=== PATIENT | male | born 1985 | race African-American/Black ===

== ENCOUNTER 2020-07-10 11:46 | Outpatient (REF) | payer OTHER, SELFPAY | END 2020-07-10 11:47 | disposition home or self-care (01) | LOC: HO.LAB 11:46 | PROVIDERS: Visit Provider Internal Medicine | DX: Z20.828 Contact with and (suspected) exposure to other viral communicable diseases (principal) | CPT/HCPCS: C9803; U0003 ==

== ENCOUNTER 2020-07-26 10:10 | Outpatient (REF) | payer OTHER, SELFPAY ==
[2020-07-26 13:36] LABS: MANUAL DIFF FLAG NO
[2020-07-26 13:47] LABS: Basophils Percent Auto 0.4 % (0-2); Eosinophils Absolute Auto 0.2 X10*3/uL (0.0-0.4); Eosinophils Percent Auto 3.1 % (0-4); Hematocrit 42.1 % (42-52); Hemoglobin 14.3 g/dl (14.0-18.0); Imm Gran Abs Auto 0.03 X10*3/uL (0.00-0.03); Imm Gran Pct Auto 0.6 % (0.0-0.4); Lymphocytes Absolute Auto 2.1 X10*3/uL (1.2-4.9); Lymphocytes Percent Auto 39.9 % (20-40); Mean Corpuscular Hemoglobin 29.6 pg (27.0-33.0); Mean Corpuscular Volume 87.2 fL (80-98); Mean Platelet Volume 11.1 fL (9.4-12.4); Monocytes Absolute Auto 0.5 X10*3/uL (0.1-1.2); Monocytes Percent Auto 9.1 % (2-11); Neutrophils Absolute Auto 2.4 X10*3/uL (2.0-8.3); Neutrophils Percent Auto 46.9 % (45-73); Platelet Count 263 X10*3/uL (160-400); Red Blood Count 4.83 X10*6/uL (4.60-5.80); Red Cell Distribution Width 12.3 % (11.0-16.0); White Blood Count 5.2 X10*3/uL (4.8-10.8)
[2020-07-26 14:12] LABS: Estimated Average Glucose 315 mg/dL; Hemoglobin A1c % 12.6 %
[2020-07-26 14:24] LABS: Alanine Aminotransferase 46 U/L (0-40); Albumin Level 4.2 g/dL (3.5-5.0); Alkaline Phosphatase 51 U/L (39-117); Anion Gap 15 (12-20); Aspartate Amino Transferase 24 U/L (5-37); Bilirubin Total 1.1 mg/dL (0.0-1.0); Blood Urea Nitrogen 10 mg/dL (9-16); Calcium 9.3 mg/dL (8.4-10.2); Carbon Dioxide 26 mmol/L (22-29); Chloride 103 mmol/L (96-108); Estimated Glomerular Filt Rate > 60; Glucose Fasting 306 mg/dL (60-99); Potassium 4.3 mmol/l (3.3-5.1); Sodium 140 mmol/L (135-145); Total Protein 7.3 g/dL (6.5-8.0)
== END 2020-07-26 10:11 | disposition home or self-care (01) ==
LOC: HO.10HDL 10:10
PROVIDERS: Visit Provider Nurse Practitioner Family
DX: E11.9 Type 2 diabetes mellitus without complications (principal)
CPT/HCPCS: 36415; 80053; 83036; 85025

== ENCOUNTER 2020-07-28 17:21 | Emergency (ER) | payer OTHER, SELFPAY ==
[2020-07-28 18:58] VITALS: BP 143/87; PULSE 76; PULSE 77; RESP 21; TEMP 37.6; O2SAT 95; BMI 51.5
--- NOTE | 2020-07-28 19:11 | XR_ITS ---
EXAMINATION: XR CHEST CLINICAL INFORMATION: SOB. COMPARISON: None TECHNIQUE: Frontal view of the chest was obtained. FINDINGS: No significant abnormality is noted involving the heart, lungs, mediastinum, bony thorax or soft tissues. XR/XR chest 1V IMPRESSION: Unremarkable chest examination.
--- NOTE | 2020-07-28 19:39 | ED_ITS ---
HPI - SOB/Dyspnea General Chief Complaint: Dyspnea Stated Complaint: Covid symptoms Time Seen by Provider: 07/28/20 18:58 Source: patient Mode of arrival: ambulatory Limitations: no limitations History of Present Illness HPI Narrative: 34 y/o male with history of DM, HTN and morbid obesity presents to the ER with intermittent SOB for the last 2-3 weeks. 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 He states he has a at home and they have been keeping it very warm with a humdifier and this is making his breathing more difficult at times. He states he has new onset seasonal allergies last fall. Hx multiple bouts of bronchitis as a kid but no dx of asthma. He denies chest pain, wheezing, fever, chills, body aches, N/V/D, headaches, LE swelling or pain. No family or personal history of blood clots. MD elicited complaint: shortness of breath Pertinent past history: diabetes Onset (ago): week(s) (2-3) Timing: intermittent Severity: moderate Exacerbating factors: exertion, allergies, cold air and warm air Relieving factors: rest Known history of: diabetes Associated symptoms: denies other symptoms Related Data Home oxygen amount: none Previous Rx's Medication Instructions Recorded fluconazole 150 mg tablet 150 mg PO Q3D #2 tab 07/18/20 lisinopril 20 mg tablet 20 mg PO DAILY 30 Days #30 tab 07/18/20 albuterol sulfate 1 inh INHALATION QID PRN #8.5 g 07/28/20 cetirizine [Zyrtec] 10 mg PO DAILY #30 cap 07/28/20 Allergies Allergy/AdvReac Type Severity Reaction Status Date / Time No Known Allergies Allergy Unverified 03/28/20 15:46 Review of Systems Review of Systems: Constitutional: No Fever, No Chills ENT/Mouth: No sore throat Cardiovascular: No Chest Pain, + SOB, No Orthopnea, No Edema Respiratory: No Cough, No Sputum, No Wheezing, No dyspnea Gastrointestinal: No Nausea, No Vomiting, No Diarrhea, No abdominal Pain Musculoskeletal: No joint pain, No Myalgias Neuro: No Weakness, No Numbness, No Dizziness, No Headache Psych: No Anxiety/Panic, No Depression Heme/Lymph: No Bruising, No Lymphadenopathy Endocrine: No Polyuria, No Polydipsia REPLACED BY [facility] Past Medical History Attestation statement: The following information was validated with the patient. Medical History Diabetes Surgical History (Updated 07/18/20 @ 13:16 by Atiya Lomas) H/O eye surgery History of tonsillectomy Family History Family History (Updated 07/18/20 @ 13:17 by Atiya Lomas) Mother No problems noted. Father High blood pressure Social History Social History (Updated 07/18/20 @ 13:18 by Atiya Lomas) Alcohol intake: never Smoking Status: Never smoker Smoked in Last 30 Days: No Use of substances other than those prescribed or required for medical reasons: No Advance Directives: No Advance Directives Information Provided: No Physical Exam Vital Signs: Vital Signs: Last Vital Signs Temp 99.6 F 07/28/20 18:58 Pulse 77 07/28/20 18:58 Resp 21 H 07/28/20 18:58 BP 143/87 H 07/28/20 18:58 Pulse Ox 95 07/28/20 18:58 Body Mass Index 51.5 Appearance: Alert. Oriented X3. No acute distress. Eyes: normal inspection ENT: Pharynx normal. Neck: Normal inspection. Neck supple. CVS: Normal heart rate and rhythm. Pulses normal. No chest wall tenderness Respiratory: No respiratory distress. Distant but clear breath sounds Abdomen: Obese, soft and nontender. +BS x4 Skin: Skin warm and dry. Normal skin color. Normal skin turgor. No rashes. Extremities: No lower extremity edema. Negative Malachi's sign Neuro: Oriented X 3. No motor deficit. No sensory deficit. Course Course Course Narrative: 34 y/o morbidly obese male with hx HTN, DM presenting with intermittent SOB for the last 2-3 weeks. No other symptoms. Recently tested negative for COVID-19 last week. PERC negative. Suspect component of reactive airway disease given enviromental factors contributing. Also concerned his about his weight and restrictive lung disease - at high risk for hypercarbic resp failure, ZHAO, OHS. Discussed importance of weight loss. Will check CXR and Resp panel, low suspicion for PNA or infection. Reevaluation(s) Reevaluation #1: CXR is unremarkable. Will plan to start patient on bronchodilator, antihistamine and have him f/u with his PCP for further workup. Would benefit from PFT's. He is non-toxic with clear lungs and Spo2 95%. He is stable for discharge. Discharge Plan Discharge Clinical Impression: Reactive airway disease without asthma Patient Disposition: Home, Self-Care Instructions: Reactive Airways Disease (ED) Additional Instructions: You were tested for COVID-19, Influenza and RSV today. If any are positive we will call you. Your chest x-ray today was normal. Your oxygen level was normal. Use the prescribed inhaler as needed for shortness of breath. Take the prescribed antihistamine to help with possible allergies, airway sensitivity. Follow up with your Primary Care Provider this week. Weight loss will help improve your breathing. Recommend starting a weight loss regimen - discuss with your doctor. If your shortness of breath worsens or if you develop new or concerning symptoms come back to the ER for further evaluation. Prescriptions: New albuterol sulfate 90 mcg/actuation HFA aerosol inhaler 1 inh inhalation QID PRN (Reason: shortness of breath or wheezing) Qty: 8.5 RF: 0 Zyrtec 10 mg capsule 10 mg PO DAILY Qty: 30 RF: 0 No Action fluconazole 150 mg tablet 150 mg PO Q3D Qty: 2 RF: 0 lisinopril 20 mg tablet 20 mg PO DAILY 30 Days Qty: 30 RF: 0 Stand Alone Forms: Work/School Release
[2020-07-28 20:57] LABS: Influenza A PCR NEGATIVE (Negative); Influenza B PCR NEGATIVE (Negative); Resp Syncy Virus RNA Qual PCR NEGATIVE (Negative); SARS COV2 PCR INHOUSE NEGATIVE (Negative)
== END 2020-07-28 20:53 | disposition home or self-care (01) ==
PROVIDERS: Physician Assistant; Emergency Provider Emergency Medicine
DX: J45.909 Unspecified asthma, uncomplicated (principal); R06.02 Shortness of breath; Z79.899 Other long term (current) drug therapy; Z20.822 Contact with and (suspected) exposure to COVID-19
CPT/HCPCS: 0241U; 36415; 71045; 99283; 99284

== ENCOUNTER 2021-08-01 08:22 | Outpatient (REF) | payer OTHER, SELFPAY ==
[2021-08-01 10:05] LABS: Hematocrit 42.3 % (42.0-52.0); Mean Corpuscular HGB Conc 33.1 g/dl (31.0-36.0); Mean Corpuscular Hemoglobin 28.7 pg (27.0-33.0); Mean Corpuscular Volume 86.7 fL (80.0-98.0); Mean Platelet Volume 10.2 fL (9.4-12.4); Platelet Count 349 X10*3/uL (160-400); Red Blood Count 4.88 X10*6/uL (4.60-5.80); Red Cell Distribution Width 12.2 % (11.0-16.0); White Blood Count 5.9 X10*3/uL (4.8-10.8)
[2021-08-01 10:20] LABS: Alanine Aminotransferase 44 U/L (0-40); Albumin Level 4.2 g/dL (3.5-5.0); Alkaline Phosphatase 56 U/L (39-117); Anion Gap 12 (12-20); Aspartate Amino Transferase 20 U/L (5-37); Bilirubin Total 0.7 mg/dL (0.0-1.0); Blood Urea Nitrogen 12 mg/dL (9-16); Calcium 9.8 mg/dL (8.4-10.2); Carbon Dioxide 26 mmol/L (22-29); Chloride 103 mmol/L (96-108); Cholesterol 255 mg/dL; Estimated Glomerular Filt Rate > 60; Glucose Fasting 270 mg/dL (60-99); HDL Cholesterol 41 mg/dL; LDL Cholesterol Calculated 191 mg/dl; Potassium 4.4 mmol/L (3.3-5.1); Sodium 137 mmol/L (135-145); Total Protein 7.6 g/dL (6.5-8.0); Triglycerides 118 mg/dL
[2021-08-01 10:40] LABS: TSH reflex Free T4 1.11 uIU/mL (0.32-4.0)
== END 2021-08-01 08:23 | disposition home or self-care (01) ==
LOC: HO.10HDL 08:22
PROVIDERS: Visit Provider Physician Assistant
DX: E11.65 Type 2 diabetes mellitus with hyperglycemia (principal); I10 Essential (primary) hypertension
CPT/HCPCS: 36415; 80053; 80061; 84443; 85027

== ENCOUNTER 2021-11-28 08:55 | Outpatient (REF) | payer OTHER, SELFPAY ==
[2021-11-28 09:45] LABS: Hematocrit 42.7 % (42.0-52.0); Hemoglobin 14.5 g/dl (14.0-18.0); Mean Corpuscular Hemoglobin 29.3 pg (27.0-33.0); Mean Corpuscular Volume 86.3 fL (80.0-98.0); Mean Platelet Volume 10.7 fL (9.4-12.4); Platelet Count 303 X10*3/uL (160-400); Red Blood Count 4.95 X10*6/uL (4.60-5.80); Red Cell Distribution Width 12.3 % (11.0-16.0); White Blood Count 5.6 X10*3/uL (4.8-10.8)
[2021-11-28 09:53] LABS: Estimated Average Glucose 301 mg/dL; Hemoglobin A1c % 12.1 %
[2021-11-28 10:01] LABS: Microalbum/Creatinine Ratio Ur 15.8 ug/mg cr
[2021-11-28 10:09] LABS: Alanine Aminotransferase 36 U/L (0-40); Albumin Level 4.3 g/dL (3.5-5.0); Alkaline Phosphatase 60 U/L (39-117); Anion Gap 12 (12-20); Aspartate Amino Transferase 17 U/L (5-37); Bilirubin Total 0.8 mg/dL (0.0-1.0); Blood Urea Nitrogen 9 mg/dL (9-16); Calcium 9.8 mg/dL (8.4-10.2); Carbon Dioxide 26 mmol/L (22-29); Chloride 104 mmol/L (96-108); Cholesterol 198 mg/dL; Estimated Glomerular Filt Rate > 60; Glucose Fasting 316 mg/dL (60-99); HDL Cholesterol 42 mg/dL; LDL Cholesterol Calculated 138 mg/dl; Potassium 4.2 mmol/L (3.3-5.1); Sodium 138 mmol/L (135-145); Total Protein 7.6 g/dL (6.5-8.0); Triglycerides 90 mg/dL
== END 2021-11-28 08:56 | disposition home or self-care (01) ==
LOC: HO.LAB 08:55
PROVIDERS: PCP Physician Assistant; Visit Provider Physician Assistant
DX: E11.65 Type 2 diabetes mellitus with hyperglycemia (principal); I10 Essential (primary) hypertension; E78.00 Pure hypercholesterolemia, unspecified
CPT/HCPCS: 36415; 80053; 80061; 82043; 83036; 85027

== ENCOUNTER 2021-12-25 09:22 | Emergency (ER) | payer OTHER, SELFPAY ==
[2021-12-25 09:24] VITALS: BP 180/112; PULSE 96; RESP 18; TEMP 36.8; O2SAT 99; BMI 44.6
[2021-12-25 09:29] VITALS: BP 145/96
[2021-12-25 10:18] VITALS: BP 169/97; PULSE 103; RESP 16; TEMP 36.4; O2SAT 95
--- NOTE | 2021-12-25 11:29 | PC.NURSE ---
Visual acuity test completed, no change to affected eye.
--- NOTE | 2021-12-25 11:44 | ED_ITS ---
HPI - Eye Problem General Chief complaint: General Medical Stated complaint: seeing spots in eye Time Seen by Provider: 12/25/21 10:04 Source: patient Mode of arrival: ambulatory Limitations: no limitations History of Present Illness HPI Narrative: Patient presents emergency department for evaluation of a black spot to his left eye. He states that for the past 3 days has been noticing intermittent black spot in his 12:00 o'clock vision. Otherwise denies any visual changes, or decreased vision. He states that he has had a similar episode like this having occurred 2 months ago, but the symptoms only lasted for 2 days and then self- resolved. Denies headache, dizziness, lightheadedness, neck pain, neck stiffness, ear pain, tinnitus, chest pain, palpitations, shortness of breath and her breathing, numbness or tingling of extremities, weakness. MD chief complaint: vision change ( scotoma) Onset (ago): day(s) Onset description: other Duration: intermittent Location: left eye Mechanism: none Associated symptoms: none Treatments Prior to Arrival: none Related Data Previous Rx's Medication Instructions Recorded albuterol sulfate 90 mcg/actuation 1 inh inhalation QID PRN shortness 07/28/20 aerosol inhaler of breath or wheezing #8.5 grams cetirizine 10 mg capsule (Zyrtec) 10 mg PO DAILY #30 caps 07/28/20 insulin glargine 100 unit/mL (3 15 unit (0.15 mL) subcut QAM 30 09/23/21 mL) subcutaneous pen (Lan days #15 mL Solostar U-100 Insulin) pen needle, diabetic 32 gauge x #50 ea 09/23/21 (BD Ultra-Fine Jennifer Pen Needle) amlodipine 5 mg tablet 5 mg PO DAILY 30 days #30 tabs 11/26/21 atorvastatin 20 mg tablet 20 mg PO DAILY 30 days #30 tabs 11/26/21 lisinopril 20 mg tablet 20 mg PO DAILY 90 days #90 tabs 11/26/21 dulaglutide 3 mg/0.5 mL 3 mg (0.5 mL) subcut QWEEK 4 weeks 12/02/21 subcutaneous pen injector #2 mL (Trulicity) Allergies Allergy/AdvReac Type Severity Reaction Status Date / Time No Known Allergies Allergy Verified 11/26/21 10:27 Review of Systems Review of Systems: Constitutional: No fever, chills, weakness or fatigue. Skin: No rash or itching. Cardiovascular: No chest pain, chest pressure or chest discomfort. No palpitations Respiratory: No shortness of breath, cough Gastrointestinal: No, nausea, vomiting or diarrhea. Musculoskeletal: No muscle pain, back pain, joint pain or stiffness. Neurologic: positive scotoma. no headache Psychiatric: No depression or anxiety. Yes all other systems are reviewed and are negative PMFSH Past Medical History Attestation statement: The following information was validated with the patient. Source: old records reviewed Surgical History H/O eye surgery History of tonsillectomy Family History Family History Mother No problems noted. Father High blood pressure Social History Social History Housing: House Alcohol intake: current Alcohol intake frequency: holidays/special occasions only Patient Tobacco Use Status: Never used Tobacco e-Cigarette/Vaping Use: Never Used Use of substances other than those prescribed or required for medical reasons: No Advance Directives: No Advance Directives Information Provided: Yes Current occupational status: employed Cognitive needs: No Hearing needs: No Vision needs: No Physical Exam Vital Signs: Vital Signs: Last Vital Signs Temp 97.6 F 12/25/21 10:18 Pulse 97 12/25/21 12:19 Resp 16 12/25/21 12:19 BP 152/99 H 12/25/21 12:19 Pulse Ox 99 12/25/21 12:19 O2 Del Method 12/25/21 12:19 BMI result Body Mass Index 44.6 Vital signs have been reviewed as normal and appeared to be correct. hypertensive? Heart rate normal.? Respiration rate normal. Temperature normal.? Oxygen saturation normal. Appearance: Alert.?Oriented to person, place and time. No acute distress.?Normal affect. Eyes: Pupils equal, round and reactive to light.? EOMI. No nystagmus. Positive red reflex. Unaffected visual acuity. Normal intra-ocular pressure bilaterally. ENT: Pharynx normal.?? Neck: Normal inspection.? Neck supple.?? CVS: Heart sounds normal. Normal heart rate and rhythm.? Pulses normal.?? Respiratory: No respiratory distress.? Lung sounds clear to auscultation bilaterally?? Abdomen: Soft and non-tender. Skin: Skin warm and dry.? Normal skin color.? Extremities: No lower extremity edema.? Neuro: Moves all extremities spontaneously. Sensation intact bilaterally. CN II- XII intact. No focal neuro deficits. Ambulates with normal steady gait. Course Course Course Narrative: Patient is a 36-year-old male with a past medical history of obesity, hyperlipidemia, hypertension, and diabetes. Presenting to the emergency department for evaluation of intermittent scotoma. patient does report that he has not been to see an eye doctor in a couple of years. He is supposed to wear corrective lenses, however he is not., visual acuity bilaterally 20 40, left 20 40, right 20 50. Intra-ocular pressure with Tonopen; right 16, left 18. not consistent with glaucoma, retinal detachment, retinal artery occlusion. Refer history of diabetes and hypertension, may be consistent with retinopathy or macular degeneration. No focal neurological findings to suggest CVA. No symptoms consistent with infectious process of the eye. Discussed importance of routine ophthalmology evaluation given his comorbidities. At this time Rocky patient is stable for discharge home, will provide contact information for Dr. Sauceda, advised outpatient follow-up with his primary care provider within 1 week, discussed with him that he should return back to the emergency department, all questions were answered and he was discharged home in a stable condition. MDM - Eye Problem Medical Records Attestation: I reviewed the patient's medical records. Lab Data Attestation: I reviewed the patient's lab results. Discharge Plan Discharge Clinical Impression: Scotoma involving central area in visual field of left eye Patient Disposition: Home, Self-Care Prescriptions: No Action Lantus Solostar U-100 Insulin 100 unit/mL (3 mL) insulin pen 15 unit subcut QAM 30 Days Qty: 15 1RF Hold Instructions: Doctor's Order (DME) pen needle, diabetic [BD Ultra-Fine Jennifer Pen Needle] 32 gauge x 5/32 needle See Rx Instructions .ROUTE .MEDSUPPLY Qty: 50 1RF Rx Instructions: As directed Trulicity 3 mg/0.5 mL pen injector 3 mg subcut QWEEK 28 Days Qty: 2 2RF albuterol sulfate 90 mcg/actuation HFA aerosol inhaler 1 inh inhalation QID PRN (Reason: shortness of breath or wheezing) Qty: 8.5 0RF Zyrtec 10 mg capsule 10 mg PO DAILY Qty: 30 0RF amlodipine 5 mg tablet 5 mg PO DAILY 30 Days Qty: 30 3RF atorvastatin 20 mg tablet 20 mg PO DAILY 30 Days Qty: 30 3RF lisinopril 20 mg tablet 20 mg PO DAILY 90 Days Qty: 90 1RF Referrals: Jamie Sauceda [Physician] - 1 week Stand Alone Forms: Work/School Release Interventions: ED Discharge Assessment Last Done: 12/25/21 12:27 Discharge Date/Time: 12/25/21 12:28
[2021-12-25 12:19] VITALS: BP 152/99; PULSE 97; RESP 16; O2SAT 99
== END 2021-12-25 12:28 | disposition home or self-care (01) ==
PROVIDERS: Emergency Provider Student in an Organized Health Care Education/Training Program; PCP Physician Assistant
DX: H53.412 Scotoma involving central area, left eye (principal); I10 Essential (primary) hypertension; E11.9 Type 2 diabetes mellitus without complications; E78.5 Hyperlipidemia, unspecified; Z79.4 Long term (current) use of insulin
CPT/HCPCS: 99282; 99284

== ENCOUNTER 2022-05-06 15:42 | Outpatient (REF) | payer OTHER, SELFPAY ==
[2022-05-06 17:01] LABS: Alanine Aminotransferase 31 U/L (0-40); Albumin Level 4.4 g/dL (3.5-5.0); Alkaline Phosphatase 60 U/L (39-117); Anion Gap 16 (12-20); Aspartate Amino Transferase 18 U/L (5-37); Blood Urea Nitrogen 12 mg/dL (9-16); Calcium 10.1 mg/dL (8.4-10.2); Carbon Dioxide 26 mmol/L (22-29); Chloride 102 mmol/L (96-108); Cholesterol 195 mg/dL; Estimated Glomerular Filt Rate > 60; Glucose Random 216 mg/dL (60-115); HDL Cholesterol 43 mg/dL; LDL Cholesterol Calculated 129 mg/dl; Potassium 4.2 mmol/L (3.3-5.1); Sodium 140 mmol/L (135-145); Total Protein 7.7 g/dL (6.5-8.0); Triglycerides 115 mg/dL
[2022-05-06 17:22] LABS: TSH reflex Free T4 0.82 uIU/mL (0.32-4.0)
[2022-05-07 07:55] LABS: HBS Num1 7.34 mIU/mL (0-7.99); HBc Num1 0.06 S/CO (0.00-0.79); Hepatitis B Core Antibody Nonreactive (Nonreactive); Hepatitis B Surface Antigen Negative (Negative); ~HepC Num1 0.11 S/CO (0.00-0.79); ~Hepatitis B Surface Antibody NONREACTIVE (Nonreactive); ~Hepatitis C Antibody Nonreactive (Nonreactive)
== END 2022-05-06 15:43 | disposition home or self-care (01) ==
LOC: HO.LAB 15:42
PROVIDERS: PCP Physician Assistant; Visit Provider Nurse Practitioner Family
DX: I10 Essential (primary) hypertension (principal); E78.00 Pure hypercholesterolemia, unspecified
CPT/HCPCS: 36415; 80053; 80061; 84443; 86704; 86706; 86803; 87340

== ENCOUNTER 2023-01-25 08:54 | Outpatient (AMB) | payer OTHER, SELFPAY ==
[2023-01-25 08:59] VITALS: BP 174/96; PULSE 87; BMI 49.2
--- NOTE | 2023-01-25 08:59 | MHC.OFFVIS ---
Intake Vital Signs 01/25/23 08:59 Height 5 ft 11 in Weight 353 lb BMI 49.2 BP 174/96 H Blood Pressure Location Rt radial Position Sitting Pulse 87 Intake Visit Reasons: Abd hernia Intake Note: Patient referred for abd hernia. Noticed hernia after lifting toilet 13 yrs ago. Patient states it has been enlarging over the years. Pain when eating fatty foods. Food Order Expediter Required: No Accompanied by: girlfriend, daughter Allergies No Known Allergies Allergy (Verified 01/25/23 09:02) Medication List - Last Reconciled 01/25/23 by Emmett Magallon MD albuterol sulfate 90 mcg/actuation 1 inh inhalation QID PRN amlodipine 5 mg PO DAILY 30 days atorvastatin 20 mg PO DAILY 30 days blood pressure kit-extra large As directed cetirizine (Zyrtec) 10 mg PO DAILY dulaglutide (Trulicity) 1.5 mg (0.5 mL) subcut QWEEK 30 days flash glucose scanning reader (FreeStyle Dora 2 Wyola) As directed flash glucose sensor (FreeStyle Dora 2 Sensor kit) As directed every 2 weeks lisinopril 30 mg PO DAILY pen needle, diabetic (BD Ultra-Fine Jennifer Pen Needle) As directed HPI HPI Comments History of Present Illness Details Patient presents with his significant other and daughter for evaluation of a supraumbilical ventral hernia. He has had this 13 years time. It is former employment, he was doing significant heavy lifting and straining and felt this was the cause. It is increasing in size, becoming more symptomatic. He wished to have repaired. Otherwise, patient is tolerating his diet, having normal bowel habits. Chart was reviewed and patient evaluated REPLACED BY [facility] Medical History Diabetes High cholesterol Hypertension Surgical History H/O eye surgery History of tonsillectomy Family History Mother No problems noted. Father High blood pressure Social History Housing: House Alcohol intake: current Alcohol intake frequency: holidays/special occasions only Patient Tobacco Use Status: Never used Tobacco e-Cigarette/Vaping Use: Never Used Current occupational status: employed Cognitive needs: No Hearing needs: No Vision needs: No Physical Exam Vital Signs: Last Vital Signs Pulse 87 01/25/23 08:59 BP 174/96 H 01/25/23 08:59 BMI result Body Mass Index 49.2 Const Other: Corpulent male. Chest Other: Chest breath sounds bilaterally, HS 1 in 2 GI Other: Patient was examined both supine and standing with Valsalva. Veto abdomen. Bilateral groin exam negative. Genitalia within normal limits. Very large approximately 3-4 cm supraumbilical incarcerated ventral hernia. Assessment & Plan Assessment & Plan (1) Abdominal hernia: Code(s): K46.9 - Unspecified abdominal hernia without obstruction or gangrene Qualifiers: Hernia type: incisional Obstruction and gangrene presence: with obstruction but without gangrene Qualified Code(s): K43.0 - Incisional hernia with obstruction, without gangrene Plan Risks, benefits, alternatives of open repair of supra umbilical ventral hernia with mesh were reviewed with the patient and included but not limited to bleeding, infection, recurrence, numbness, pain, scarring, bowel injury, seroma formation,, and patient wishes to proceed. All questions were answered. Arrangements will be made for this. Coding Level of Care Code New Pt Level 4 (08006) Diagnoses Abdominal hernia K43.0 Hernia type: incisional Obstruction and gangrene presence: with obstruction but without gangrene
== END 2023-01-25 09:14 | disposition home or self-care (01) ==
PROVIDERS: PCP Physician Assistant; Referring Provider Nurse Practitioner Family; Visit Provider Surgery
DX: E78.00 Pure hypercholesterolemia, unspecified (principal); K43.0 Incisional hernia with obstruction, without gangrene
CPT/HCPCS: 99204

== ENCOUNTER → 2023-01-25 08:54 | Outpatient (BNVA) | payer OTHER, SELFPAY | PROVIDERS: PCP Physician Assistant; Referring Provider Nurse Practitioner Family; Visit Provider Surgery | DX: K43.0 Incisional hernia with obstruction, without gangrene (principal) | CPT/HCPCS: 99202 ==

== ENCOUNTER 2023-02-18 05:52 | Day surgery (SDC) | payer OTHER, SELFPAY ==
[2023-02-15 15:06] VITALS: BMI 49.2
[2023-02-16 10:06] VITALS: BMI 49.2
--- NOTE | 2023-02-16 11:56 | HO.ANESPROP2 ---
HPI - Anesthesia Eval Consult details Narrative: 37yo M for incarcerated supra-umbilical ventral hernia w/mesh PMFSH Active Problems Active Problems: All Active Problems (Updated 02/16/23 @ 10:10 by Cynthia Dye RN) Abdominal hernia (Acute) Obese (Acute) Scotoma involving central area in visual field of left eye (Acute) High cholesterol (Acute) Hypertension (Acute) Diabetes (Acute) Past Medical History Medical History (Updated 02/16/23 @ 10:10 by Cynthia Dye RN) Diabetes High cholesterol History of snoring Hypertension Family History Family History Mother No problems noted. Father High blood pressure Surgical History Surgical History (Updated 02/16/23 @ 10:00 by Cynthia Dye RN) H/O eye surgery History of tonsillectomy Social History Social History (Updated 02/16/23 @ 10:06 by Cynthia yDe RN) Household Members: Significant Other and Children Housing: House Are you a primary floor care specialist to a significant other at home: Yes (daughter) Do you presently have visiting nurse or other home services: No Alcohol intake: current Alcohol intake frequency: holidays/special occasions only Patient Tobacco Use Status: Never used Tobacco e-Cigarette/Vaping Use: Never Used Use of substances other than those prescribed or required for medical reasons: No Have you been hit, kicked, punched, or otherwise hurt by someone within the past year? If so, by whom?: No Are you DNR?: No Advance Directives: No Advance Directives Information Provided: Yes Advance Directives on File: No Recently lost weight without trying: No Nutrition Risks: No Nutritional Risk Poor oral hygiene: No Current occupational status: employed Cognitive needs: No Hearing needs: No Vision needs: No Meds Allergies Allergy/AdvReac Type Severity Reaction Status Date / Time shellfish derived Allergy Hives, Verified 02/16/23 10:00 itching Home Medications Medication Instructions Recorded Confirmed Last Taken Type cetirizine 10 mg capsule (Zyrtec) 10 mg PO DAILY PRN Allergy Symptoms 02/16/23 02/16/23 Unknown History Exam Exam Date and Time: February 16, 2023 1156 Height,Weight and Vital Signs: Height 5 ft 11 in Weight 160.118 kg Assessment and Plan Assessment Anesthesia Assessment: Chart Reviewed
--- NOTE | 2023-02-17 10:21 | MHC.SHP ---
Pre-Procedural Eval Section A Date of Service: 02/17/23 The patient is an INPATIENT: No Changes since office visit: No Cold of Flu in the past 2 weeks, No New Medical Problems, No Changes in Medication and No Patient answered all questions The History & Physical has been completed within 30 days and I have reviewed it.: Yes Section B Chief Complaint: Incisional hernia with obstruction, without gangre Allergies: Allergies Allergy/AdvReac Type Severity Reaction Status Date / Time shellfish derived Allergy Hives, Verified 02/16/23 10:00 itching Plan I have reviewed the history and physical and performed a pertinent physical examination on my patient. No changes have occurred unless specified. Time Spent With Patient Time: Total time managing care of this patient today ____ minutes.
[2023-02-18] VITALS (10 sets, daily range): BP systolic 136–164; BP diastolic 86–101; PULSE 97–110; RESP 16–17; TEMP 36.5–36.8; O2SAT 90–95
--- NOTE | 2023-02-18 | ECG_ITS ---
Test Reason : preop htn dm Blood Pressure : / mmHG Vent. Rate : 099 BPM Atrial Rate : 099 BPM P-R Int : 164 ms QRS Dur : 080 ms QT Int : 334 ms P-R-T Axes : 053 015 -29 degrees QTc Int : 428 ms Normal sinus rhythm Nonspecific T wave abnormality Abnormal ECG When compared with ECG of 31-AUG-2011 11:38, Nonspecific T wave abnormality has replaced inverted T waves in Inferior leads Referred By: Janie Wu Electronically Signed By:Chuck Bardales
[2023-02-18 06:34] LABS: Glucose, Whole Blood 134 mg/dL (60-115)
[2023-02-18] MEDS: Lactated Ringers 1,000 ML 100 ML IVCONT (06:40)
[2023-02-18 06:48] LABS: Mean Corpuscular HGB Conc 34.1 g/dl (31.0-36.0); Mean Corpuscular Hemoglobin 29.6 pg (27.0-33.0); Mean Corpuscular Volume 86.7 fL (80.0-98.0); Mean Platelet Volume 9.9 fL (9.4-12.4); Platelet Count 299 X10*3/uL (160-400); Red Blood Count 4.73 X10*6/uL (4.60-5.80); Red Cell Distribution Width 12.5 % (11.0-16.0); White Blood Count 5.2 X10*3/uL (4.8-10.8)
[2023-02-18 07:04] LABS: Anion Gap 12 (12-20); Blood Urea Nitrogen 14 mg/dL (9-16); Carbon Dioxide 27 mmol/L (22-29); Chloride 105 mmol/L (96-108); Creatinine Clr Calc Pharmacy 178.9; Estimated Glomerular Filt Rate > 60; Glucose Fasting 137 mg/dL (60-99); Potassium 3.4 mmol/L (3.3-5.1); Sodium 141 mmol/L (135-145)
--- NOTE | 2023-02-18 07:15 | HO.ANESPROP2 ---
[facility] Active Problems Active Problems: All Active Problems (Updated 02/16/23 @ 10:10 by Cynthia Dye RN) Abdominal hernia (Acute) Obese (Acute) Scotoma involving central area in visual field of left eye (Acute) High cholesterol (Acute) Hypertension (Acute) Diabetes (Acute) Past Medical History Medical History (Updated 02/16/23 @ 10:10 by Cynthia Dye RN) Diabetes High cholesterol History of snoring Hypertension Family History Family History Mother No problems noted. Father High blood pressure Family history of problems with anesthesia: No Surgical History Surgical History (Updated 02/16/23 @ 10:00 by Cynthia Dye RN) H/O eye surgery History of tonsillectomy History of Problems with Anesthesia: No Social History Social History (Updated 02/16/23 @ 10:06 by Cynthia Dye RN) Household Members: Significant Other and Children Housing: House Are you a primary hospice care transitions coordinator to a significant other at home: Yes (daughter) Do you presently have visiting nurse or other home services: No Alcohol intake: current Alcohol intake frequency: holidays/special occasions only Patient Tobacco Use Status: Never used Tobacco e-Cigarette/Vaping Use: Never Used Use of substances other than those prescribed or required for medical reasons: No Have you been hit, kicked, punched, or otherwise hurt by someone within the past year? If so, by whom?: No Are you DNR?: No Advance Directives: No Advance Directives Information Provided: Yes Advance Directives on File: No Recently lost weight without trying: No Nutrition Risks: No Nutritional Risk Poor oral hygiene: No Current occupational status: employed Cognitive needs: No Hearing needs: No Vision needs: No Meds Allergies Allergy/AdvReac Type Severity Reaction Status Date / Time shellfish derived Allergy Hives, Verified 02/16/23 10:00 itching Active Medications: Current Medications Lactated Ringer's (Lr) 1,000 mls @ 100 mls/hr IVCONT .Q10H THIAGO Last Admin: 02/18/23 06:40 Dose: 100 mls/hr Home Medications Medication Instructions Recorded Confirmed Last Taken Type cetirizine 10 mg capsule (Zyrtec) 10 mg PO DAILY PRN Allergy Symptoms 02/16/23 02/16/23 Unknown History Exam Exam Date and Time: February 18, 2023 0715 Height,Weight and Vital Signs: Height 5 ft 11 in Weight 160.118 kg Last Vital Signs Temp 98.2 F 02/18/23 06:25 Pulse 97 02/18/23 06:25 Resp 16 02/18/23 06:25 BP 152/93 H 02/18/23 06:25 Pulse Ox 95 02/18/23 06:25 O2 Del Method Room Air 02/18/23 06:25 Pertinent Lab Results Pertinent Lab Results: Laboratory Tests 02/18/23 02/18/23 02/18/23 06:28 06:28 06:31 WBC 5.2 RBC 4.73 Hgb 14.0 Hct 41.0 L MCV 86.7 MCH 29.6 MCHC 34.1 RDW 12.5 Plt Count 299 MPV 9.9 Absolute Nucleated RBC 0.000 Nucleated RBC % (auto) 0.0 Sodium 141 Potassium 3.4 Chloride 105 Carbon Dioxide 27 Anion Gap 12 BUN 14 Creatinine 0.89 Estim Creat Clear Calc 178.9 Estimated GFR > 60 POC Glucose 134 H Fasting Glucose 137 H Calcium 10.0 Airway Mallampati Class: III TM Dist: >3cm Neck ROM: Full Assessment and Plan Assessment Anesthesia Assessment: Anesthesia Plan Discussed and Chart Reviewed Final Anesthetic Review Family History of Problems with Anesthesia: No History of Problems with Anesthesia: No NPO: Yes ASA Class: III Final Preanesthetic Review: No Changes in Pt Med Stat, Meds/Allgs Chart Reviewed, Consent Obtained/Reviewed and Anes Risks/Benef Reviewed Patient Risk: Intermediate Procedure Risk: Low Anesthetic Plan Anesthetic Plan: GA Disposition: Standard PACU
--- NOTE | 2023-02-18 08:32 | P.OP_ITS ---
Operative Note Operative Note Date of Service: 02/18/23 Narrative: Preoperative diagnosis: [] Large supraumbilical incarcerated ventral hernia Postop diagnosis: [] Same Procedure [] open repair with mesh incarcerated supraumbilical ventral hernia Surgeon: [] Naun Cigar Head Stringer: [] SOFYA Taylor Type of Anesthesia: [] General Indication for surgery: [] Approximately maximum diameter 5 cm incarcerated supraumbilical ventral hernia with omental contents. Findings: [] Patient was brought to the operating room, placed on operative table in supine position, after adequate level of general anesthesia was induced, the patient's abdomen which was very corpulent was prepped and draped in usual sterile fashion. Using a small midline incision over the hernia in question, this carried down through skin, subcutaneous tissue, where the large hernia sac was circumferentially dissected out using blunt and sharp dissection down to the fascia. Sac was opened where incarcerated omental contents were reduced. Sac was amputated using Bovie. Circumferential clearance of the fascia was accomplished uneventfully. A large Bard mesh was placed in this defect, and the superficial layer of the mesh was circumferentially sutured to the surrounding fascia using interrupted 0 Ethibond suture. At completion the procedure, mesh was in good position with no gaps or tension. Wound was irrigated, secured hemostasis, and closed in the following manner; subcutaneous tissue was reapproximated using interrupted 3-0 Vicryl sutures. Interrupted inverted deep dermal 3-0 Vicryl sutures followed by running subcuticular 4-0 Vicryl sutures were placed. Steri-Strips and sterile dressings were applied. Wound was infiltrated with 1 % lidocaine/0.5% Marcaine. Sponge, needle, and instrument counts reported to be correct. Patient tolerated the procedure well and emerged anesthesia in stable condition. EBL minimal
[2023-02-18] MEDS: oxyCODONE HCl Immed Release 5 MG TABLET 10 MG PO (09:02)
== END 2023-02-18 10:45 | disposition home or self-care (01) ==
PROVIDERS: Nurse Practitioner; PCP Physician Assistant; Visit Provider Surgery
PROC: (CPT 49594; principal; 2023-02-18 07:30)
DX: K43.6 Other and unspecified ventral hernia with obstruction, without gangrene (principal); I10 Essential (primary) hypertension; E78.00 Pure hypercholesterolemia, unspecified; E11.9 Type 2 diabetes mellitus without complications; Z79.85 Long-term (current) use of injectable non-insulin antidiabetic drugs; Z79.899 Other long term (current) drug therapy
CPT/HCPCS: 49594; 36415; 80048; 82947; 85027; 88302; 93005; C1781; J0330; J0690; J1100; J2250; J2405; J2795; J3010

== ENCOUNTER → 2023-02-18 05:52 | Outpatient (BNV) | payer OTHER, SELFPAY | PROVIDERS: PCP Physician Assistant; Visit Provider Surgery | DX: K43.6 Other and unspecified ventral hernia with obstruction, without gangrene (principal) | CPT/HCPCS: 49594 ==

== ENCOUNTER → 2023-02-18 07:00 | Outpatient (BNV) | payer OTHER, SELFPAY | PROVIDERS: PCP Physician Assistant; Visit Provider Internal Medicine Cardiovascular Disease | DX: R94.31 Abnormal electrocardiogram [ECG] [EKG] (principal) | CPT/HCPCS: 93010 ==

== ENCOUNTER 2023-02-25 10:38 | Outpatient (AMB) | payer OTHER, SELFPAY ==
--- NOTE | 2023-02-25 10:40 | MHC.OFFVIS ---
Intake Vital Signs 02/25/23 10:44 Weight 357 lb BP 169/104 H Blood Pressure Location Rt radial Position Sitting Pulse 95 Intake Visit Reasons: S/P supra-umbilical ventral hernia w/mesh Intake Note: Patient here s/o umbilical ventral hernia rapair. Reports incisions healing well. Denies bleeding, pain, itch. Taking rx pain meds as needed. 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 He has minimal incisional discomfort. He has time diet. Having normal bowel habits. He is increasing his activity level. Patient wishes to return to work. [facility] Medical History Diabetes High cholesterol History of snoring Hypertension Ventral hernia (02/18/23) Surgical History H/O eye surgery History of tonsillectomy Family History Mother No problems noted. Father High blood pressure Social History Household Members: Significant Other and Children Housing: House Are you a primary critical care registered nurse to a significant other at home: Yes (daughter) Do you presently have visiting nurse or other home services: No Alcohol intake: current Alcohol intake frequency: holidays/special occasions only Patient Tobacco Use Status: Never used Tobacco e-Cigarette/Vaping Use: Never Used Current occupational status: employed Cognitive needs: No Hearing needs: No Vision needs: No Physical Exam Vital Signs: Last Vital Signs Pulse 95 02/25/23 10:44 BP 169/104 H 02/25/23 10:44 GI Other: Abdomen soft, corpulent. Wound clean dry and intact. Assessment & Plan Assessment & Plan (1) Abdominal hernia: Code(s): K46.9 - Unspecified abdominal hernia without obstruction or gangrene Qualifiers: Hernia type: incisional Obstruction and gangrene presence: with obstruction but without gangrene Qualified Code(s): K43.0 - Incisional hernia with obstruction, without gangrene Plan Current plan is to allow patient to return to work with 4 weeks light duty. He will follow-up p.r.n.. He has been given local instructions. Medications: Discontinued cetirizine 10 mg PO DAILY 30 caps 0RF Coding Level of Care Code Global (89138) Diagnoses Abdominal hernia K43.0 Hernia type: incisional Obstruction and gangrene presence: with obstruction but without gangrene
[2023-02-25 10:44] VITALS: BP 169/104; PULSE 95
== END 2023-02-25 10:53 | disposition home or self-care (01) ==
PROVIDERS: PCP Physician Assistant; Visit Provider Surgery
DX: K43.0 Incisional hernia with obstruction, without gangrene (principal)
CPT/HCPCS: 99213

== ENCOUNTER → 2023-02-25 10:38 | Outpatient (BNVA) | payer OTHER, SELFPAY | PROVIDERS: PCP Physician Assistant; Visit Provider Surgery | DX: K43.0 Incisional hernia with obstruction, without gangrene (principal) | CPT/HCPCS: 99212 ==

== ENCOUNTER 2023-06-12 19:47 | Emergency (ER) | payer OTHER, SELFPAY ==
--- NOTE | ~2023-06-12 | XR_ITS ---
EXAMINATION: XR CHEST CLINICAL INFORMATION: Sternal abscess. COMPARISON: Chest radiograph 07/28/2020. TECHNIQUE: 2 views of the chest were obtained. FINDINGS: Stable appearance of the cardiomediastinal silhouette. No focal airspace opacities, pleural effusions or pneumothorax. No acute osseous findings. Visualized upper abdomen is within normal limits. XR/XR chest 2V IMPRESSION: No acute cardiopulmonary findings. Evaluation of the sternum and surrounding soft tissues is very limited by radiograph in addition to limited as well in this particular case secondary to patient body habitus. Further evaluation with targeted ultrasound or CT with IV contrast could be obtained as clinically warranted.
[2023-06-12 19:58] VITALS: BP 179/117; PULSE 113; RESP 18; TEMP 36.2; O2SAT 97; BMI 50.2
--- NOTE | 2023-06-12 20:32 | MHC.EDTECH ---
Patient blood drawn and sent to lab .
[2023-06-12 20:35] LABS: MANUAL DIFF FLAG NO
[2023-06-12 20:39] LABS: Basophils Percent Auto 0.3 % (0-2); Eosinophils Absolute Auto 0.1 X10*3/uL (0.0-0.4); Eosinophils Percent Auto 1.9 % (0-4); Hematocrit 38.6 % (42.0-52.0); Hemoglobin 13.2 g/dl (14.0-18.0); Imm Gran Abs Auto 0.03 X10*3/uL (0.00-0.03); Imm Gran Pct Auto 0.4 % (0.0-0.4); Lymphocytes Absolute Auto 2.7 X10*3/uL (1.2-4.9); Lymphocytes Percent Auto 35.6 % (20-40); Mean Corpuscular HGB Conc 34.2 g/dl (31.0-36.0); Mean Corpuscular Hemoglobin 28.9 pg (27.0-33.0); Mean Corpuscular Volume 84.6 fL (80.0-98.0); Mean Platelet Volume 10.2 fL (9.4-12.4); Monocytes Absolute Auto 0.6 X10*3/uL (0.1-1.2); Monocytes Percent Auto 7.5 % (2-11); Neutrophils Absolute Auto 4.1 x10*3/uL (2.0-8.3); Neutrophils Percent Auto 54.3 % (45-73); Platelet Count 291 X10*3/uL (160-400); Red Blood Count 4.56 X10*6/uL (4.60-5.80); Red Cell Distribution Width 12.3 % (11.0-16.0); White Blood Count 7.5 X10*3/uL (4.8-10.8)
[2023-06-12 21:04] LABS: Alanine Aminotransferase 23 U/L (0-40); Albumin Level 3.9 g/dL (3.5-5.0); Alkaline Phosphatase 83 U/L (39-117); Anion Gap 14 (12-20); Aspartate Amino Transferase 11 U/L (5-37); Bilirubin Total 0.8 mg/dL (0.0-1.0); Blood Urea Nitrogen 10 mg/dL (9-16); Calcium 9.7 mg/dL (8.4-10.2); Carbon Dioxide 25 mmol/L (22-29); Chloride 105 mmol/L (96-108); Creatinine Clr Calc Pharmacy 162.7; Estimated Glomerular Filt Rate > 60; Glucose Random 380 mg/dL (60-115); Potassium 3.7 mmol/L (3.3-5.1); Sodium 140 mmol/L (135-145); Total Protein 7.6 g/dL (6.5-8.0)
[2023-06-12 21:20] VITALS: BP 149/110; PULSE 108; RESP 18; TEMP 36.8; O2SAT 93
[2023-06-12] MEDS: cephALEXin 500 MG CAPSULE PO (22:08)
[2023-06-12] MEDS: Doxycycline Monohydrate 100 MG CAPSULE PO (22:08)
--- NOTE | 2023-06-12 22:45 | ED.SKABFB ---
HPI - Skin/Abscess/Foreign Bdy General Chief complaint: Skin/Abscess/Foreign Body Stated complaint: lump on chest, painful Time Seen by Provider: 06/12/23 21:24 Source: patient Mode of arrival: ambulatory Limitations: no limitations History of Present Illness HPI narrative: Patient history of diabetes noticed small swelling sternal area for last few days getting worse now history of small abscess few years ago no fever no chills no other symptoms Related Data Home Medications Medication Instructions Recorded Confirmed cetirizine 10 mg capsule (Zyrtec) 10 mg PO DAILY PRN Allergy Symptoms 02/16/23 02/16/23 Previous Rx's Medication Instructions Recorded albuterol sulfate 90 mcg/actuation 1 inh inhalation QID PRN shortness 07/28/20 aerosol inhaler of breath or wheezing #8.5 grams pen needle, diabetic 32 gauge x #50 ea 09/23/21 (BD Ultra-Fine Jennifer Pen Needle) blood pressure kit-extra large #1 ea 02/10/22 flash glucose scanning reader #1 ea 02/19/22 (FreeStyle Dora 2 Hendrix) flash glucose sensor (FreeStyle #2 ea 02/19/22 Dora 2 Sensor kit) hydrocodone 5 mg-acetaminophen 325 1 tab PO Q4-6H PRN pain #30 tabs 02/18/23 mg tablet amlodipine 5 mg tablet 5 mg PO DAILY 30 days #30 tabs 05/04/23 atorvastatin 20 mg tablet 20 mg PO DAILY 30 days #30 tabs 05/04/23 dulaglutide 1.5 mg/0.5 mL 1.5 mg (0.5 mL) subcut QWEEK 30 05/24/23 subcutaneous pen injector days #2.5 mL (Trulicity) lisinopril 30 mg tablet 30 mg PO DAILY #90 tabs 06/08/23 cephalexin 500 mg capsule 500 mg PO QID 10 days #40 caps 06/12/23 doxycycline hyclate 100 mg tablet 100 mg PO BID #20 tabs 06/12/23 ibuprofen 600 mg tablet 600 mg PO Q6H PRN fever or pain 06/12/23 #30 tabs metformin 850 mg tablet 850 mg PO BID #180 tabs 06/12/23 Allergies Allergy/AdvReac Type Severity Reaction Status Date / Time shellfish derived Allergy Hives, Verified 06/12/23 19:58 itching Review of Systems Review of Systems: Yes all other systems are reviewed and are negative [facility] Past Medical History Medical History Ventral hernia (02/18/23) History of snoring High cholesterol Hypertension Diabetes Surgical History History of tonsillectomy H/O eye surgery Family History Family History Mother No problems noted. Father High blood pressure Social History Social History Household Members: Significant Other and Children Housing: House Are you a primary manager critical care to a significant other at home: Yes (daughter) Do you presently have visiting nurse or other home services: No Alcohol intake: current Alcohol intake frequency: holidays/special occasions only Patient Tobacco Use Status: Never used Tobacco Smoked in Last 30 Days: No e-Cigarette/Vaping Use: Never Used Advance Directives: No Advance Directives Information Provided: No Current occupational status: employed Cognitive needs: No Hearing needs: No Vision needs: No Physical Exam Vital Signs: Vital Signs: Last Vital Signs Temp 98.3 F 06/12/23 21:20 Pulse 108 H 06/12/23 21:20 Resp 18 06/12/23 21:20 BP 141/98 H 06/12/23 22:56 Pulse Ox 93 06/12/23 21:20 O2 Del Method Room Air 06/12/23 21:20 BMI result Body Mass Index 50.2 Appearance: Alert. Oriented X3. No acute distress. Eyes: PERRLA, No Nystagmus ENT: Pharynx normal. Oral Mucosa moist Neck: Normal inspection. Neck supple. CVS: Normal heart rate and rhythm. Pulses normal. Respiratory: No respiratory distress. Equal air entry bilateral, no wheezing/rales/rhonchi Abdomen: Soft and nontender. Bowel sounds are present, Skin: Skin warm and dry. Normal skin color. Normal skin turgor. Extremities: No lower extremity edema. No calf tenderness Neuro: Oriented X 3. Chest: Chest/axillae images: 1. 3 x 3 cm abscess with surrounding erythema Medications Administered Discontinued Medications Generic Name Dose Route Start Last Admin Trade Name Freq PRN Reason Stop Dose Admin Cephalexin HCl 500 mg 06/12/23 22:02 06/12/23 22:08 Cephalexin 500 Mg Capsule PO 06/12/23 22:03 500 mg ONCE ONE Administration Doxycycline Monohydrate 100 mg 06/12/23 22:02 06/12/23 22:08 Doxycycline Monohydrate 100 Mg Capsule PO 06/12/23 22:03 100 mg ONCE ONE Administration Ibuprofen 800 mg 06/12/23 22:52 06/12/23 23:00 Ibuprofen 800 Mg Tablet PO 06/12/23 22:53 800 mg ONCE ONE Administration Insulin Human Lispro 6 unit 06/12/23 22:49 06/12/23 23:00 Insulin Lispro 100 Unit/Ml 3 Ml Vial SUBCUT 06/12/23 22:50 6 unit ONCE ONE Administration Medical Decision Making Medical Decision Making [facility] Narrative: Patient with free movable sternal wall abscess which was I and D and pus drained felt much better given doxycycline and cephalexin pus culture was sent sternum nontender chest x-ray negative for any fluid collection patient does have a elevated blood sugar as he taking any Trulicity will add metformin give him insulin in the ER advised to follow-up as outpatient Differential Diagnosis Differential Diagnoses: The differential diagnosis associated with the presentation includes Lab Data [facility] Lab Attestation statement: I reviewed the patient's lab results. 06/12/23 20:28 06/12/23 20:28 Labs: Lab Results 06/12/23 Range/Units 20:28 WBC 7.5 (4.8-10.8) X10*3/uL RBC 4.56 L (4.60-5.80) X10*6/uL Hgb 13.2 L (14.0-18.0) g/dl Hct 38.6 L (42.0-52.0) % MCV 84.6 (80.0-98.0) fL MCH 28.9 (27.0-33.0) pg MCHC 34.2 (31.0-36.0) g/dl RDW 12.3 (11.0-16.0) % Plt Count 291 (160-400) X10*3/uL MPV 10.2 (9.4-12.4) fL Immature Gran % (Auto) 0.4 (0.0-0.4) % Neut % (Auto) 54.3 (45-73) % Lymph % (Auto) 35.6 (20-40) % Baca % (Auto) 7.5 (2-11) % Eos % (Auto) 1.9 (0-4) % Baso % (Auto) 0.3 (0-2) % Lymph # (Auto) 2.7 (1.2-4.9) X10*3/uL Baca # (Auto) 0.6 (0.1-1.2) X10*3/uL Eos # (Auto) 0.1 (0.0-0.4) X10*3/uL Baso # (Auto) 0.0 (0.0-0.2) X10*3/uL Abs Immat Gran (auto) 0.03 (0.00-0.03) X10*3/uL Absolute Neuts (auto) 4.1 (2.0-8.3) x10*3/uL Absolute Nucleated RBC 0.000 (0.0-0.012) X10*3/uL Nucleated RBC % (auto) 0.0 (0.0-0.2) /100WBC Sodium 140 (135-145) mmol/L Potassium 3.7 (3.3-5.1) mmol/L Chloride 105 (96-108) mmol/L Carbon Dioxide 25 (22-29) mmol/L Anion Gap 14 (12-20) BUN 10 (9-16) mg/dL Creatinine 0.99 (0.5-1.4) mg/dL Estim Creat Clear Calc 162.7 Estimated GFR > 60 Random Glucose 380 H* (60-115) mg/dL Calcium 9.7 (8.4-10.2) mg/dL Total Bilirubin 0.8 (0.0-1.0) mg/dL AST 11 (5-37) U/L ALT 23 (0-40) U/L Alkaline Phosphatase 83 (39-117) U/L Total Protein 7.6 (6.5-8.0) g/dL Albumin 3.9 (3.5-5.0) g/dL Procedures Abscess I/D Site: chest Local Anesthetic: lidocaine 1% Amount of anesthesia used (mL): 10 Technique: incised with blade Amount of fluid expressed (mL): 5 Sent for culture/gram staining?: Yes Irrigation: No Packing used?: iodoform Discharge Plan Discharge Clinical Impression: Abscess of skin or subcutaneous tissue, Hyperglycemia due to diabetes mellitus Patient Disposition: Home, Self-Care Instructions: Diabetic Hyperglycemia (ED), Abscess Incision and Drainage (DC) Additional Instructions: Local care as advised Remove the packing in 48 hours Antibiotic as prescribed Start taking metformin 850 mg twice daily along with your Trulicity for better control of your blood sugar Follow-up with your PCP Check blood pressure twice daily should be less than 140/90 Prescriptions: New cephalexin 500 mg capsule 500 mg PO QID 10 Days Qty: 40 0RF ibuprofen 600 mg tablet 600 mg PO Q6H PRN (Reason: fever or pain) Qty: 30 0RF doxycycline hyclate 100 mg tablet 100 mg PO BID Qty: 20 0RF metformin 850 mg tablet 850 mg PO BID Qty: 180 2RF No Action (DME) pen needle, diabetic [BD Ultra-Fine Jennifer Pen Needle] 32 gauge x 5/32 needle See Rx Instructions .ROUTE .MEDSUPPLY Qty: 50 1RF Rx Instructions: As directed (DME) FreeStyle Dora 2 Sensor Kit See Rx Instructions .Route Qty: 2 11RF Rx Instructions: As directed every 2 weeks (DME) FreeStyle Dora 2 Hendrix Misc See Rx Instructions .Route Qty: 1 0RF Rx Instructions: As directed amlodipine 5 mg tablet 5 mg PO DAILY 30 Days Qty: 30 3RF atorvastatin 20 mg tablet 20 mg PO DAILY 30 Days Qty: 30 3RF Trulicity 1.5 mg/0.5 mL pen injector 1.5 mg subcut QWEEK 30 Days Qty: 2.5 1RF lisinopril 30 mg tablet 30 mg PO DAILY Qty: 90 0RF albuterol sulfate 90 mcg/actuation HFA aerosol inhaler 1 inh inhalation QID PRN (Reason: shortness of breath or wheezing) Qty: 8.5 0RF Zyrtec 10 mg capsule 10 mg PO DAILY PRN (Reason: Allergy Symptoms) hydrocodone-acetaminophen 5-325 mg tablet 1 tab PO Q4-6H PRN (Reason: pain) Qty: 30 0RF Rx Instructions: Partial Fill upon patient request. (DME) blood pressure kit-extra large Kit See Rx Instructions .Route Qty: 1 0RF Rx Instructions: As directed
[2023-06-12 22:56] VITALS: BP 141/98
[2023-06-12] MEDS: Insulin Lispro 100 UNIT/ML 3 ML VIAL 6 UNIT SUBCUT (23:00)
[2023-06-12] MEDS: Ibuprofen 800 MG TABLET PO (23:00)
[2023-06-12 23:30] LABS: Glucose, Whole Blood 290 mg/dL (60-115)
== END 2023-06-12 23:09 | disposition home or self-care (01) ==
PROVIDERS: Emergency Provider Internal Medicine; PCP Physician Assistant
DX: L02.213 Cutaneous abscess of chest wall (principal); E11.65 Type 2 diabetes mellitus with hyperglycemia; I10 Essential (primary) hypertension; E78.00 Pure hypercholesterolemia, unspecified; Z79.85 Long-term (current) use of injectable non-insulin antidiabetic drugs; Z79.02 Long term (current) use of antithrombotics/antiplatelets; Z79.899 Other long term (current) drug therapy
CPT/HCPCS: 10060; 36415; 71046; 80053; 82947; 85025; 87070; 87205; 99284

== ENCOUNTER 2023-09-02 10:53 | Outpatient (AMB) | payer OTHER, SELFPAY ==
--- NOTE | 2023-09-02 10:59 | MHC.PC.OV ---
Vital Signs 09/02/23 11:00 Height 5 ft 11 in Weight 359 lb BMI 50.1 BP 164/102 H Blood Pressure Location Lt brachial Position Sitting Respiration 17 Pulse 100 Pulse Source Pulse Oximeter Pulse Oximetry (%) 97 Oxygen Delivery Method Room Air Intake Visit Reasons: DM,HTN,high cholesterol Or First Assist Registered Nurse Required: No Accompanied by: Significant Other Allergies shellfish derived Allergy (Verified 09/02/23 11:14) Hives, itching Medication List - Last Reconciled 09/02/23 by Aaron Garcia PA-C albuterol sulfate 90 mcg/actuation 1 inh inhalation QID PRN amlodipine 5 mg PO DAILY 30 days atorvastatin 20 mg PO DAILY 30 days blood pressure kit-extra large As directed dulaglutide (Trulicity) 1.5 mg (0.5 mL) subcut QWEEK 30 days flash glucose scanning reader (FreeStyle Dora 2 [place]) As directed flash glucose sensor (FreeStyle Dora 2 Sensor kit) As directed every 2 weeks ibuprofen 600 mg PO Q6H PRN lisinopril 30 mg PO DAILY metformin 850 mg PO BID pen needle, diabetic (BD Ultra-Fine Jennifer Pen Needle) As directed semaglutide (Ozempic) 0.5 mg (0.736 mL) subcut QWEEK 4 weeks Tobacco use date assessed: 09/02/23 Dental Screening Dental Screen Date: 09/02/23 Did you have a dental visit in the last 12 months?: Yes Did you have a dental problem in the last 6 months where you did not have access to dental care?: No Was dental information given to patient?: Patient has dentist HPI DM,HTN,high cholesterol HPI Details Patient is a 37-year-old male here today for follow-up visit.? ? Patient has a past medical history significant for uncontrolled type 2 diabetes, hypertension, obesity. .. Hypertension:? Blood pressure elevated today in office. Denies any shortness of breath, headaches or chest pain. PLAN: Will increase his amlodipine to 10 mg maximal dose. DMII: Currently patient type 2 diabetes suboptimally controlled. Today's A1c at 9.3. Now on Ozempic 0.5 mg weekly and metformin 850 b.i.d.. He does report recently getting hernia surgery and has not been as physically active. One physically active he reports better control over his blood sugars. PLAN: Will try to start being more physically active, will increase his metformin to a 1000 b.i.d.. Laboratory Tests 02/10/22 05/06/22 12/22/22 16:18 15:28 07:55 POC Glucose Hgb A1c (Clinic) 12.8 H* 10.6 H 7.4 H 06/12/23 09/02/23 22:47 11:11 POC Glucose 290 H Hgb A1c (Clinic) 9.2 H ? [facility] Medical History Ventral hernia (02/18/23) History of snoring High cholesterol Hypertension Diabetes Surgical History History of tonsillectomy H/O eye surgery Family History Mother No problems noted. Father High blood pressure Social History Household Members: Significant Other and Children Housing: House Are you a primary healthcare project manager to a significant other at home: Yes (daughter) Do you presently have visiting nurse or other home services: No Alcohol intake: current Alcohol intake frequency: holidays/special occasions only Patient Tobacco Use Status: Never used Tobacco e-Cigarette/Vaping Use: Never Used Current occupational status: employed Cognitive needs: No Hearing needs: No Vision needs: No Questionnaire PHQ-9 Over the last 2 weeks, how often have you been bothered by any of the following problems? 1. Little interest or pleasure in doing things: not at all 2. Feeling down, depressed, or hopeless: not at all 3. Trouble falling or staying asleep, or sleeping too much: not at all 4. Feeling tired or having little energy: not at all 5. Poor appetite or overeating: not at all 6. Feeling bad about yourself - or that you are a failure or have let yourself or your family down: not at all 7. Trouble concentrating on things, such as reading the newspaper or watching television: not at all 8. Moving or speaking so slowly that other people could have noticed. Or the opposite - being so fidgety or restless that you have been moving around a lot more than usual: not at all 9. Thoughts that you would be better off or of hurting yourself in some way: not at all Total score: 0 Depression Screening Interpretation: Negative Depression Screening Done: Yes 15290 - PHQ-9 Billing: Yes Source: Developed by Drs. Rik Cowart, Steph Loo, Randall Oropeza and colleagues, with an educational dajuan from [employer]. Thrive Questionnaire Date Thrive assessed: 09/02/23 I am a: Patient What is your living situation today?: I have a steady place to live Within the past 12 months, did the food you bought not last and you didn't have the money to get more?: Never true Within the past 12 months, did you worry whether your food would run out before you got money to buy more?: Never true Do you have trouble paying for medicines?: No Do you have trouble getting transportation to medical appointments?: No Do you have trouble paying your heating and electricity bill?: No Do you have trouble taking care of your child, family member or friend?: No Do you have trouble with day-to-day activities such as bathing, preparing meals, shopping, managing finances, etc.?: No Are you currently unemployed and looking for a job?: No Are you interested in more education?: No Please select the resources that you would like help with: None Currently or been in a relationship where the following occur: no concerns reported THRIVE Score: 0 AUDIT C Alcohol Use Questionnaire (AUDIT-C) 1. How often do you have a drink containing alcohol?: Monthly or less 2. How many drinks containing alcohol do you have on a typical day when you are drinking?: 3 or 4 3. How often do you have six or more drinks on one occasion?: Never Total Score: 2 Score Reviewed/Action Taken: Yes GINNY-7 AMB Questionnaire GINNY-7 Date GINNY - 7 assessed: 09/02/23 Feeling nervous, anxious, or on edge: 0 = Not at all Not being able to stop or control worryin = Not at all Worrying too much about different things: 0 = Not at all Trouble relaxin = Not at all Being so restless that it is hard to sit still: 0 = Not at all Becoming easily annoyed or irritable: 0 = Not at all Feeling afraid as if something awful might happen: 0 = Not at all Total GINNY-7 score (0-4 normal; 5-9 mild; 10-14 moderate; 15-21 severe): 0 Source: Developed by Drs. Rik Cowart, Steph Loo, Randall Oropeza and colleagues, with an educational dajuan from [employer]. GINNY-7 Assessment Billing GINNY-7 Assessment Tool: GINNY-7 Assessment 98442 Review of Systems Const Denies headache(s) Eyes Denies loss of vision ENT Denies vertigo, Denies dizziness, Denies headache(s) and Denies sore throat Card Denies chest pain, Denies leg edema and Denies lightheadedness Resp Denies cough, Denies hemoptysis and Denies wheezing GI Denies abdominal pain, Denies melena, Denies constipation, Denies diarrhea and Denies vomiting Denies dysuria, Denies urinary frequency and Denies urinary urgency Musc Denies arthralgias, Denies joint swelling, Denies numbness and Denies tingling Neuro Denies Abnormal speech present, Denies behavioral changes, Denies vertigo, Denies dizziness, Denies headache(s), Denies loss of vision, Denies memory loss, Denies numbness and Denies tingling Psych Denies anxiety, Denies behavioral changes, Denies depression, Denies memory loss and Denies panic attacks Jaret/Lymph Denies easy bleeding and Denies easy bruising Aller/Immun Denies wheezing Physical exam (Primary Care) Vital Signs: Last Vital Signs Pulse 100 09/02/23 11:00 Resp 17 09/02/23 11:00 BP 164/102 H 09/02/23 11:00 Pulse Ox 97 09/02/23 11:00 Oxygen Delivery Method Room Air 09/02/23 11:00 BMI result Body Mass Index 50.1 Tobacco/Smoking Status: Tobacco use Status Tobacco use date assessed 09/02/23 09/02/23 11:02 Patient Tobacco Use Status Never used Tobacco 09/02/23 10:59 e-Cigarette/Vaping Use Never Used 09/02/23 10:59 PHQ-9: PHQ-9 Score PHQ-9: Total score 0 09/02/23 11:16 Depression Screening Interpretation: Negative Thrive Assessment: Date of Thrive Assessment Date Thrive assessed 09/02/23 09/02/23 11:07 Currently or been in a relationship where the following occur: no concerns reported Const General: healthy appearing, no acute distress, alert and awake Nutritional Appearance: well nourished Orientation/consciousness: oriented to person, oriented to place and oriented to time HENMT Ears: TM's normal bilaterally General nose exam: Normal nasal mucous membranes and turbinates present Eyes Conjunctivae: conjunctivae normal Sclerae: sclerae normal Pupils: Equal, round and reactive pupils present Neck Neck: Yes no lymphadenopathy and Yes no JVD Thyroid: Thyroid normal Carotids: no bruits Resp Effort & Inspection: normal respiratory effort and not tachypneic Auscultation: no crackles, no rales, no rhonchi and no wheezes Cardio Rate: regular rate Rhythm: regular rhythm Heart sounds: no murmurs and normal S1 and S2 GI Palpation (GI): Soft to palpation, nontender, no hepatomegaly and no splenomegaly Auscultation: normal bowel sounds Skin General skin exam: no rashes or lesions noted and dry skin Neuro General: oriented to person, oriented to place and oriented to time Cranial nerves: Yes Equal, round and reactive pupils present Speech: No Abnormal speech present Gait exam (Neuro): Normal gait present Motor exam (neuro): no tremor noted Extrem Right upper extremity: full ROM Left upper extremity: full ROM Right lower extremity: full ROM; no edema Left lower extremity: full ROM; no edema Psych Mental Status: mental status grossly normal Speech and movement: Normal speech and movement present Affect: normal affect Attitude: cooperative Thought process: Normal thought process present Results AMB Hemoglobin A1c AMB Hemoglobin A1c 9.2 % Last Edit by JEFFERY Bautista on 09/02/23 11:11 Results Reviewed Results Reviewed: Laboratory Last Values Hgb A1c (Clinic) 9.2 % (4.0-6.0) H 09/02/23 11:11 Assessment and Plan Assessment & Plan (1) Hypertension: Code(s): I10 - Essential (primary) hypertension Qualifiers: Hypertension type: essential hypertension Qualified Code(s): I10 - Essential (primary) hypertension Plan: Blood pressure elevated in office today , . Will increase his dose of amlodipine to maximal dose of 10 mg. Advised to continue monitoring blood pressure at home. Goal blood pressures to be below 140/90 (2) Diabetes: Code(s): E11.9 - Type 2 diabetes mellitus without complications Qualifiers: Diabetes mellitus complication status: with hyperglycemia Diabetes mellitus mcfp insulin use: without buttermaker continuous churn use Diabetes mellitus type: type 2 Qualified Code(s): E11.65 - Type 2 diabetes mellitus with hyperglycemia Plan: Today's A1c at above 9. Type 2 diabetes suboptimally controlled. He denies any polydipsia or polyuria. Will increase his metformin to 1000 b.i.d.. Continue Ozempic 0.5 mg weekly. Apprehensive on starting daily insulin at this time. Will consider increase his on pick to 1 mg if A1c still above 7.5. He will commence being more physically active and adapting to better eating habits for the next 3 months and will recheck A1c at that time (3) High cholesterol: Code(s): E78.00 - Pure hypercholesterolemia, unspecified Plan: Continue on atorvastatin 20 mg daily. Avoid fried foods, chicken skin, eggs, butter,margarine, pastries and? red meat. Fasting lipid panel ordered (4) Obese: Code(s): E66.9 - Obesity, unspecified Qualifiers: Body mass index: BMI 50.0-59.9 Obesity classification: adult class 3 (BMI >= 40) Obesity type: due to excess calories Serious obesity comorbidity presence: with serious comorbidity Qualified Code(s): E66.01 - Morbid (severe) obesity due to excess calories; Z68.43 - Body mass index [BMI] 50.0-59.9, adult Plan: Diet and excercise to reduce BMI. Plan Follow up in 3 months. Orders: Orders Comprehensive [place]. Panel Fast Today I10 - Essential (primary) hypertension AMB Hemoglobin A1c Today E11.9 - Type 2 diabetes mellitus without complications Microalbumin, Random (w Creat) Today I10 - Essential (primary) hypertension Lipid Panel Today E78.00 - Pure hypercholesterolemia, unspecified Medications: New metformin 1,000 mg PO BID 30 days 60 tabs 3RF E11.65 - Type 2 diabetes mellitus with hyperglycemia, I10 - Essential (primary) hypertension amlodipine 10 mg PO DAILY 90 days 90 tabs 1RF I10 - Essential (primary) hypertension Discontinued metformin Discontinued Reason: Doctor's Order 850 mg PO BID 180 tabs 2RF amlodipine Discontinued Reason: Doctor's Order 5 mg PO DAILY 30 days 30 tabs 3RF I10 - Essential (primary) hypertension Coding Level of Care Code Est Pt Level 4 (14399) Diagnoses Essential hypertension I10 Hypertension type: essential hypertension Type 2 diabetes mellitus with hyperglycemia, without long-term current use of insulin E11.65 Diabetes mellitus complication status: with hyperglycemia Diabetes mellitus mcfp insulin use: without mcfp use Diabetes mellitus type: type 2 High cholesterol E78.00 Class 3 severe obesity due to excess calories with serious comorbidity and body mass index (BMI) of 50.0 to 59.9 in adult E66.01; Z68.43 Body mass index: BMI 50.0-59.9 Obesity classification: adult class 3 (BMI >= 40) Obesity type: due to excess calories Serious obesity comorbidity presence: with serious comorbidity Additional Codes GINNY-7 Assessment Billing - GINNY-7 Assessment Tool: GINNY-7 Assessment 65105 ([id number])
[2023-09-02 11:00] VITALS: BP 164/102; PULSE 100; RESP 17; O2SAT 97; BMI 50.1
== END 2023-09-02 11:35 | disposition home or self-care (01) ==
PROVIDERS: PCP Physician Assistant; Visit Provider Physician Assistant
DX: E11.65 Type 2 diabetes mellitus with hyperglycemia (principal); E66.01 Morbid (severe) obesity due to excess calories; Z68.43 Body mass index [BMI] 50.0-59.9, adult; Z79.4 Long term (current) use of insulin; I10 Essential (primary) hypertension; E78.00 Pure hypercholesterolemia, unspecified
CPT/HCPCS: 83036; 99214

== ENCOUNTER 2023-12-01 09:00 | Outpatient (REF) | payer OTHER, SELFPAY ==
[2023-12-01 11:18] LABS: Alanine Aminotransferase 26 U/L (0-40); Albumin Level 4.1 g/dL (3.5-5.0); Alkaline Phosphatase 65 U/L (39-117); Anion Gap 12 (12-20); Aspartate Amino Transferase 15 U/L (5-37); Bilirubin Total 1.1 mg/dL (0.0-1.0); Blood Urea Nitrogen 13 mg/dL (9-16); Calcium 9.5 mg/dL (8.4-10.2); Carbon Dioxide 26 mmol/L (22-29); Chloride 106 mmol/L (96-108); Cholesterol 142 mg/dL (<200); Estimated Glomerular Filt Rate > 60; Glucose Fasting 160 mg/dL (60-99); HDL Cholesterol 40 mg/dL (>40); LDL Cholesterol Calculated 89 mg/dL (<100); Sodium 140 mmol/L (135-145); Total Protein 7.4 g/dL (6.5-8.0); Triglycerides 69 mg/dL (<150)
[2023-12-01 11:49] LABS: Microalbum/Creatinine Ratio Ur 7.9 ug/mg cr (<30)
== END 2023-12-01 09:01 | disposition home or self-care (01) ==
LOC: HO.10HDL 09:00
PROVIDERS: Visit Provider Physician Assistant
DX: I10 Essential (primary) hypertension (principal); E78.00 Pure hypercholesterolemia, unspecified
CPT/HCPCS: 36415; 80053; 80061; 82043; 82570

== ENCOUNTER 2023-12-14 09:33 | Emergency (ER) | payer OTHER, SELFPAY ==
--- NOTE | ~2023-12-14 | US_ITS ---
EXAMINATION: US VENOUS ULTRASOUND WITH DOPPLER LOWER EXTREMITY, RIGHT CLINICAL INFORMATION: Right leg swelling, atraumatic COMPARISON: None available. TECHNIQUE: Ultrasound of the deep veins is performed from the hip to the calf with compression sonography and color and pulse Doppler assessment. Spectral analysis with color-flow imaging is performed. FINDINGS: There is normal venous compression and respiratory variation. Visualization of the calf veins is very limited due to depth and swelling. The visualized common femoral vein, superficial femoral vein, profunda femoral vein and popliteal vein shows no evidence of deep venous thrombosis. US/US venous duplex LE RT IMPRESSION: No DVT demonstrated in the right lower extremity.
[2023-12-14 09:34] VITALS: BP 152/95; PULSE 99; RESP 20; TEMP 36.6; O2SAT 96; BMI 48.8
[2023-12-14 10:23] LABS: MANUAL DIFF FLAG NO
[2023-12-14 10:30] LABS: Basophils Percent Auto 0.5 % (0-2); Eosinophils Absolute Auto 0.1 X10*3/uL (0.0-0.4); Eosinophils Percent Auto 1.4 % (0-4); Hematocrit 37.9 % (42.0-52.0); Hemoglobin 13.5 g/dl (14.0-18.0); Imm Gran Abs Auto 0.01 X10*3/uL (0.00-0.03); Imm Gran Pct Auto 0.2 % (0.0-0.4); Lymphocytes Absolute Auto 2.3 X10*3/uL (1.2-4.9); Lymphocytes Percent Auto 40.7 % (20-40); Mean Corpuscular HGB Conc 35.6 g/dl (31.0-36.0); Mean Corpuscular Hemoglobin 30.1 pg (27.0-33.0); Mean Corpuscular Volume 84.6 fL (80.0-98.0); Mean Platelet Volume 9.9 fL (9.4-12.4); Monocytes Absolute Auto 0.4 X10*3/uL (0.1-1.2); Monocytes Percent Auto 7.2 % (2-11); Neutrophils Absolute Auto 2.8 x10*3/uL (2.0-8.3); Platelet Count 298 X10*3/uL (160-400); Red Blood Count 4.48 X10*6/uL (4.60-5.80); Red Cell Distribution Width 12.6 % (11.0-16.0); White Blood Count 5.7 X10*3/uL (4.8-10.8)
--- NOTE | 2023-12-14 10:40 | ED_ITS ---
HPI - General Adult General Chief complaint: Extremity Injury, Lower Stated complaint: R foot/leg swelling Time Seen by Provider: 12/14/23 10:36 History of Present Illness ED Provider: Rodolfo Suresh PA-C HPI narrative: This is 37 year old male pmh of obesity, diabetes, HTN, high cholesterol, abdominal hernia presenting with right foot swelling starting yesterday morning after work. Patient states he is on his feet a lot at work and has experienced similar swelling after surgery in the past. Denies pain, difficulty with ambulation, weakness, numbness, tingling, chest pain, SOB, fever, chills. No history of DVT/PE. Related Data Previous Rx's ?Medication ?Instructions ?Recorded albuterol sulfate 90 mcg/actuation 1 inh inhalation QID PRN shortness 07/28/20 aerosol inhaler of breath or wheezing #8.5 grams pen needle, diabetic 32 gauge x #50 ea 09/23/21 (BD Ultra-Fine Jennifer Pen Needle) blood pressure kit-extra large #1 ea 02/10/22 flash glucose scanning reader #1 ea 02/19/22 (FreeStyle Dora 2 Polson) flash glucose sensor (FreeStyle #2 ea 02/19/22 Dora 2 Sensor kit) ibuprofen 600 mg tablet 600 mg PO Q6H PRN fever or pain 06/12/23 #30 tabs dulaglutide 1.5 mg/0.5 mL 1.5 mg (0.5 mL) subcut QWEEK 30 07/16/23 subcutaneous pen injector days #2.5 mL (Trulicity) semaglutide 0.25 mg or 0.5 mg (2 0.5 mg (0.736 mL) subcut QWEEK 4 08/18/23 mg/3 mL) subcutaneous pen injector weeks #3 mL (Ozempic) amlodipine 10 mg tablet 10 mg PO DAILY 90 days #90 tabs 09/02/23 metformin 1,000 mg tablet 1,000 mg PO BID 30 days #60 tabs 09/02/23 atorvastatin 20 mg tablet 20 mg PO DAILY 30 days #30 tabs 12/07/23 lisinopril 30 mg tablet 30 mg PO DAILY #90 tabs 12/07/23 Allergies Allergy/AdvReac Type Severity Reaction Status Date / Time shellfish derived Allergy Hives, Verified 12/14/23 09:37 itching Review of Systems 2 Review of Systems: Yes all other systems are reviewed and are negative [facility] Past Medical History Medical History Ventral hernia (02/18/23) History of snoring High cholesterol Hypertension Diabetes Surgical History History of tonsillectomy H/O eye surgery Family History Family History Mother No problems noted. Father High blood pressure Social History Social History Household Members: Significant Other and Children Housing: House Are you a primary respite care provider to a significant other at home: Yes (daughter) Do you presently have visiting nurse or other home services: No Alcohol intake: current Alcohol intake frequency: holidays/special occasions only Patient Tobacco Use Status: Never used Tobacco e-Cigarette/Vaping Use: Never Used Advance Directives: No Advance Directives Information Provided: Yes Do you have a plan to hurt others: No Plan Current occupational status: employed Cognitive needs: No Hearing needs: No Vision needs: No Physical Exam ED Vital Signs: Vital Signs - 24 hr 12/14/23 09:34 12/14/23 12:49 Temperature 97.9 F 97.8 F Pulse Rate 99 90 Respiratory Rate 20 18 Blood Pressure 152/95 H 170/107 H Pulse Oximetry 96 93 Oxygen Delivery Method Room Air Room Air BMI result Body Mass Index 48.8 vss. Appearance: Alert.? Oriented X3.? No acute distress.? Head: Normocephalic, atraumatic, no step-offs or deformities Neck: Normal inspection.? Neck supple.? CVS: Normal heart rate and rhythm.? Pulses normal.? Respiratory: No respiratory distress.? Breath sounds normal.? Abdomen: Soft and nontender.? Skin: Skin warm and dry.? Normal skin color.? Normal skin turgor.? Extremities: 1+ non pitting edema to right foot. DP and PT pulses equal and symmetric 2+ bilaterally. No calf ttp. 5/5 strength to bilateral upper and lower extremities Back: No midline tenderness, no C-spine tenderness, full range of motion, no CVA tenderness bilaterally Neuro: Oriented X 3.? No motor deficit.? No sensory deficit. CN 2-12 intact Course Reevaluation(s) Reevaluation #1: No DVT in the right lower extremity. Advised him to follow up with PCP due to lower extremity edema. CBC with a baseline normocytic anemia. Chemistry no acute findings requiring intervention. Slightly elevated bilirubin however this appears to be around patient's baseline. Will have him follow-up with PCP. Educated patient on diagnosis and treatment plan, answered all question, patient verbalizes understanding. At this time patient will be discharged home, advised to return with new or worsening symptoms. Educated on worrisome signs and symptoms and when to return. At this time I feel comfortable discharge home. Time: 13:02 Medical Decision Making Medical Decision Making [facility] Narrative: 1030 37 year old male pmh obesity, diabetes, HTN, high cholesterol, abdominal hernia presenting with atraumatic right foot edema. PE: Extremities: 1+ non pitting edema to right foot. DP and PT pulses equal and symmetric 2+ bilaterally. No calf ttp. 5/5 strength to bilateral upper and lower extremities Differential: DVT vs venous insufficiency vs acute heart failure. Unlikely threat to limb, compartment syndrome, cellulitis, necrotizing fasciitis. No pain, erythema. Plan:BNP and venous duplex US pending. Differential Diagnosis Differential Diagnoses: The differential diagnosis associated with the presentation includes (DVT vs venous insufficiency vs acute heart failure. Unlikely threat to limb, compartment syndrome, cellulitis, necrotizing fasciitis. No pain, erythema. ) Lab Data [facility] Lab Attestation statement: I reviewed the patient's lab results. 12/14/23 10:17 12/14/23 10:17 Labs: Lab Results 12/14/23 Range/Units 10:17 WBC 5.7 (4.8-10.8) X10*3/uL RBC 4.48 L (4.60-5.80) X10*6/uL Hgb 13.5 L (14.0-18.0) g/dl Hct 37.9 L (42.0-52.0) % MCV 84.6 (80.0-98.0) fL MCH 30.1 (27.0-33.0) pg MCHC 35.6 (31.0-36.0) g/dl RDW 12.6 (11.0-16.0) % Plt Count 298 (160-400) X10*3/uL MPV 9.9 (9.4-12.4) fL Immature Gran % (Auto) 0.2 (0.0-0.4) % Neut % (Auto) 50.0 (45-73) % Lymph % (Auto) 40.7 H (20-40) % [place] % (Auto) 7.2 (2-11) % Eos % (Auto) 1.4 (0-4) % Baso % (Auto) 0.5 (0-2) % Lymph # (Auto) 2.3 (1.2-4.9) X10*3/uL [place] # (Auto) 0.4 (0.1-1.2) X10*3/uL Eos # (Auto) 0.1 (0.0-0.4) X10*3/uL Baso # (Auto) 0.0 (0.0-0.2) X10*3/uL Abs Immat Gran (auto) 0.01 (0.00-0.03) X10*3/uL Absolute Neuts (auto) 2.8 (2.0-8.3) x10*3/uL Absolute Nucleated RBC 0.000 (0.0-0.012) X10*3/uL Nucleated RBC % (auto) 0.0 (0.0-0.2) /100WBC Sodium 140 (135-145) mmol/L Potassium 3.6 (3.3-5.1) mmol/L Chloride 106 (96-108) mmol/L Carbon Dioxide 25 (22-29) mmol/L Anion Gap 13 (12-20) BUN 12 (9-16) mg/dL Creatinine 0.79 (0.5-1.4) mg/dL Estim Creat Clear Calc 200.6 Estimated GFR > 60 Random Glucose 178 H (60-115) mg/dL Calcium 9.2 (8.4-10.2) mg/dL Total Bilirubin 1.4 H (0.0-1.0) mg/dL AST 15 (5-37) U/L ALT 24 (0-40) U/L Alkaline Phosphatase 62 (39-117) U/L B-Natriuretic Peptide 11 (<100) pg/mL Total Protein 7.2 (6.5-8.0) g/dL Albumin 4.0 (3.5-5.0) g/dL External Record Review External record reviewed: Inpatient record, Office record, Outpatient record, Prior outpatient labs, Prior outpatient radiology, Primary care record and Outside ED record Chronic Conditions Patient?s care impacted by: Diabetes, Hypertension and Other (High cholesterol, obesity) Critical Care Time Critical Care Time Critical Care Time: No Discharge Plan Discharge Clinical Impression: Leg edema Patient Disposition: Home, Self-Care Instructions: Leg Edema (ED) Additional Instructions: Take your medications as prescribed. If you were prescribed antibiotics today, it is important that you take your medication to their entirety, do not skip any doses, do not finish them early. Follow-up with your primary care provider this week. Return to the emergency department with new or worsening symptoms. Such as fevers, chills, chest pain, shortness of breath, nausea, vomiting, dizziness, headache, vision changes, lethargy In case of emergency call 911 Follow up with yout PCP US/US venous duplex LE RT IMPRESSION: No DVT demonstrated in the right lower extremity. Prescriptions: No Action (DME) pen needle, diabetic [BD Ultra-Fine Jennifer Pen Needle] 32 gauge x 5/32 needle See Rx Instructions .ROUTE .MEDSUPPLY Qty: 50 1RF Rx Instructions: As directed (DME) FreeStyle Dora 2 Sensor Kit See Rx Instructions .Route Qty: 2 11RF Rx Instructions: As directed every 2 weeks (DME) FreeStyle Dora 2 [place] Misc See Rx Instructions .Route Qty: 1 0RF Rx Instructions: As directed Trulicity 1.5 mg/0.5 mL pen injector 1.5 mg subcut QWEEK 30 Days Qty: 2.5 1RF Hold Instructions: Doctor's Order Ozempic 0.25 mg or 0.5 mg (2 mg/3 mL) pen injector 0.5 mg subcut QWEEK 28 Days Qty: 3 3RF lisinopril 30 mg tablet 30 mg PO DAILY Qty: 90 0RF atorvastatin 20 mg tablet 20 mg PO DAILY 30 Days Qty: 30 3RF albuterol sulfate 90 mcg/actuation HFA aerosol inhaler 1 inh inhalation QID PRN (Reason: shortness of breath or wheezing) Qty: 8.5 0RF ibuprofen 600 mg tablet 600 mg PO Q6H PRN (Reason: fever or pain) Qty: 30 0RF metformin 1,000 mg tablet 1,000 mg PO BID 30 Days Qty: 60 3RF amlodipine 10 mg tablet 10 mg PO DAILY 90 Days Qty: 90 1RF (DME) blood pressure kit-extra large Kit See Rx Instructions .Route Qty: 1 0RF Rx Instructions: As directed Referrals: Aaron Garcia PA-C [Primary Care Provider] - 2 days Stand Alone Forms: Work/School Release Interventions: ED Discharge Assessment Last Done: 12/14/23 12:49 Discharge Date/Time: 12/14/23 12:56 Print Language: Iranian
[2023-12-14 10:51] LABS: Alanine Aminotransferase 24 U/L (0-40); Alkaline Phosphatase 62 U/L (39-117); Anion Gap 13 (12-20); Aspartate Amino Transferase 15 U/L (5-37); Bilirubin Total 1.4 mg/dL (0.0-1.0); Blood Urea Nitrogen 12 mg/dL (9-16); Calcium 9.2 mg/dL (8.4-10.2); Carbon Dioxide 25 mmol/L (22-29); Chloride 106 mmol/L (96-108); Creatinine Clr Calc Pharmacy 200.6; Estimated Glomerular Filt Rate > 60; Glucose Random 178 mg/dL (60-115); Potassium 3.6 mmol/L (3.3-5.1); Sodium 140 mmol/L (135-145); Total Protein 7.2 g/dL (6.5-8.0)
[2023-12-14 10:57] LABS: B Type Natriuretic Peptide 11 pg/mL (<100)
[2023-12-14 12:49] VITALS: BP 170/107; PULSE 90; RESP 18; TEMP 36.6; O2SAT 93
== END 2023-12-14 12:56 | disposition home or self-care (01) ==
PROVIDERS: Emergency Provider Emergency Medicine; PCP Physician Assistant
DX: R60.0 Localized edema (principal); E11.9 Type 2 diabetes mellitus without complications; I10 Essential (primary) hypertension
CPT/HCPCS: 36415; 80053; 83880; 85025; 93971; 99282; 99284

== ENCOUNTER 2023-12-27 08:58 | Outpatient (AMB) | payer OTHER, SELFPAY ==
--- NOTE | 2023-12-27 09:08 | MHC.PC.OV ---
Vital Signs 12/27/23 09:09 Height 5 ft 11 in Weight 358 lb 7.546 oz BMI 50.0 BP 162/108 H Blood Pressure Location Lt brachial Position Sitting Pulse 90 Pulse Source Pulse Oximeter Pulse Oximetry (%) 96 Oxygen Delivery Method Room Air Intake Visit Reasons: Annual Exam Intake Note: Patient is here today for a physical. Wine Manager Required: No Accompanied by: Self / Same As Patient Allergies shellfish derived Allergy (Verified 12/27/23 09:27) Hives, itching Medication List - Last Reconciled 12/27/23 by Aaron Garcia PA-C albuterol sulfate 90 mcg/actuation 1 inh inhalation QID PRN amlodipine 10 mg PO DAILY 90 days atorvastatin 20 mg PO DAILY 30 days blood pressure kit-extra large As directed dulaglutide (Trulicity) 1.5 mg (0.5 mL) subcut QWEEK 30 days flash glucose scanning reader (FreeStyle Dora 2 [employer]) As directed flash glucose sensor (FreeStyle Dora 2 Sensor kit) As directed every 2 weeks ibuprofen 600 mg PO Q6H PRN lisinopril 30 mg PO DAILY metformin 1,000 mg PO BID 30 days pen needle, diabetic (BD Ultra-Fine Jennifer Pen Needle) As directed semaglutide (Ozempic) 0.5 mg (0.736 mL) subcut QWEEK 4 weeks Tobacco use date assessed: 09/02/23 Dental Screening Dental Screen Date: 09/02/23 [facility] Annual Exam HPI Details Patient is a 37-year-old male here today for a routine annual physical.? ? Patient has a past medical history significant for uncontrolled type 2 diabetes, hypertension, obesity. Concern--> recently seen at the ER for lower extremities swelling over the last several weeks. Of note did increase his amlodipine to 10 mg at last PCP office visit. This is likely the reason for his pedal edema. .. Hypertension:? Blood pressure elevated today in office. Denies any shortness of breath, headaches or chest pain. PLAN: Will decrease his amlodipine to 2.5 mg and add on hydrochlorothiazide for better blood pressure control. Also will evaluate sleep apnea he does have high-risk for this. DMII: Currently patient type 2 diabetes suboptimally controlled. Today's A1c improved from 9.3-7.7 Now on Ozempic 0.5 mg weekly and metformin 1000 b.i.d.. He does report recently getting hernia surgery and has not been as physically active. One physically active he reports better control over his blood sugars. PLAN: Will try to start being more physically active, will increase his Ozempic to 1 mg weekly Vaccines: Up-to-date with tetanus vaccine, UTD with COVID ,pneumonia vaccine Laboratory Tests 12/22/22 09/02/23 12/01/23 07:55 11:11 09:02 RBC Hgb Hgb A1c (Clinic) 7.4 H 9.2 H Urine Microalbumin 22.0 12/14/23 12/27/23 10:17 09:10 RBC 4.48 L Hgb 13.5 L Hgb A1c (Clinic) 7.7 H Urine Microalbumin [facility] Medical History Ventral hernia (02/18/23) History of snoring High cholesterol Hypertension Diabetes Surgical History History of tonsillectomy H/O eye surgery Family History Mother No problems noted. Father High blood pressure Social History (Updated 12/27/23 @ 09:32 by Aaron Garcia PA-C) Household Members: Significant Other and Children Housing: House Are you a primary rn critical care to a significant other at home: Yes (daughter) Do you presently have visiting nurse or other home services: No Alcohol intake: current Alcohol intake frequency: holidays/special occasions only Patient Tobacco Use Status: Never used Tobacco e-Cigarette/Vaping Use: Never Used service: No Current occupational status: employed Current occupation: [employer] - Cognitive needs: No Hearing needs: No Vision needs: No Questionnaire Thrive Questionnaire Date Thrive assessed: 09/02/23 GINNY-7 AMB Questionnaire GINNY-7 Date GINNY - 7 assessed: 09/02/23 Source: Developed by Drs. Rik Cowart, Steph Loo, Randall Oropeza and colleagues, with an educational dajuan from [email or web address]. Review of Systems Const Denies body aches, Denies chills, Denies excessive sweating, Denies fatigue, Denies fever(s) and Denies headache(s) Eyes Denies blurry vision ENT Denies dysphagia, Denies vertigo, Denies dizziness, Denies headache(s), Denies hearing loss and Denies tinnitus Card Denies chest pain, Denies chest pain with activity, Denies syncope, Denies irregular heart rhythm and Denies dyspnea Resp Denies chest congestion, Denies cough, Denies hemoptysis, Denies dyspnea and Denies wheezing GI Denies abdominal pain, Denies melena, Denies hematochezia, Denies coffee ground emesis, Denies dysphagia, Denies diarrhea, Denies nausea and Denies vomiting Denies difficulty urinating, Denies dysuria, Denies urinary frequency, Denies urinary hesitancy and Denies urinary urgency Musc Denies arthralgias, Denies limited range of motion, Denies muscle cramps and Denies muscle weakness Skin/Breast Denies rash and Denies skin ulcer Neuro Denies Abnormal speech present, Denies confusion, Denies vertigo, Denies dizziness, Denies syncope, Denies headache(s), Denies memory loss and Denies seizure-like activity Psych Denies anxiety, Denies confusion, Denies depression, Denies memory loss, Denies panic attacks and Denies paranoia Endo Denies excessive sweating, Denies fatigue, Denies flushing, Denies polydipsia and Denies polyuria Aller/Immun Denies wheezing Physical exam (Primary Care) Vital Signs: Last Vital Signs Pulse 90 12/27/23 09:09 BP 162/108 H 12/27/23 09:09 Pulse Ox 96 12/27/23 09:09 Oxygen Delivery Method Room Air 12/27/23 09:09 BMI result Body Mass Index 50.0 BMI Assessment/Plan discussion: High BMI High, discussed plan: lifestyle, weight reduction and physical activity Tobacco/Smoking Status: Tobacco use Status Tobacco use date assessed 09/02/23 12/27/23 09:09 Patient Tobacco Use Status Never used Tobacco 12/27/23 09:32 e-Cigarette/Vaping Use Never Used 12/27/23 09:32 Thrive Assessment: Date of Thrive Assessment Date Thrive assessed 09/02/23 12/27/23 09:09 Const Other: Obese General: cooperative, comfortable, no acute distress, alert and awake; No confusion Orientation/consciousness: oriented to person, oriented to place, patient oriented x3 and No confusion [facility] Head: Yes normocephalic Ears: external ears normal and TM's normal bilaterally Face and sinus: No sinus tenderness Mouth: Normal oral and palatal mucosa present and tongue normal Teeth and gingiva: dentition normal and gingiva normal Throat: Yes posterior oropharynx normal, Yes tonsils normal and Yes uvula midline Eyes Conjunctivae: conjunctivae normal Sclerae: sclerae normal Pupils: Equal, round and reactive pupils present EOM: EOMs intact bilaterally Direct Ophthalmoscopy: No no photophobia Neck Neck: Yes no lymphadenopathy, No tender and Yes no JVD Thyroid: Thyroid normal Carotids: no bruits Chest Chest palpation & inspection: no tenderness Resp Effort & Inspection: normal respiratory effort, no audible wheezes, not labored and no stridor Auscultation: no crackles, no rales, no rhonchi and no wheezes Cardio Jugular venous distension: no JVD Rate: regular rate, not bradycardic and not tachycardic Rhythm: regular rhythm Bruits: no carotid bruits Peripheral pulses: Peripheral pulses 2+ throughout GI Inspection: Yes normal to inspection, No abdominal wall ecchymosis and No visible herniation Palpation (GI): Soft to palpation, nontender, no guarding, not rigid and No hepatosplenomegaly present Auscultation: normoactive bowel sounds General: Yes no CVA tenderness Back/Spine/Pelvis Back: no CVA tenderness and No back tenderness Cervical Spine: cervical ROM normal Thoracic/Lumbar Spine: thoracic and lumbar spine normal to inspection, straight leg raise negative bilaterally, No thoraco-lumbar ROM limited and No lumbar spinal tenderness Skin Lesions: no lesions Rashes: no rashes Wounds: no wounds Neuro General: oriented to person, oriented to place, patient oriented x3, CN's II-XI intact bilaterally and No confusion Cranial nerves: Yes Equal, round and reactive pupils present and Yes Normal accommodation reflex present Cognition (Neuro): normal cognition Speech: No Abnormal speech present Gait exam (Neuro): Normal gait present Motor exam (neuro): 5/5 motor strength present throughout Extrem Right upper extremity: full ROM; no cyanosis Left upper extremity: full ROM; no cyanosis Right lower extremity: edema Left lower extremity: edema Psych Appearance: grossly normal Mental Status: mental status grossly normal Affect: normal affect Attitude: cooperative Thought process: Normal thought process present Results AMB Hemoglobin A1c AMB Hemoglobin A1c 7.7 % Last Edit by JEFFERY Bautista on 12/27/23 09:24 Results Reviewed Results Reviewed: Laboratory Last Values Hgb A1c (Clinic) 7.7 % (4.0-6.0) H 12/27/23 09:10 Assessment and Plan Assessment & Plan (1) Annual physical exam: Code(s): Z00.00 - Encounter for general adult medical examination without abnormal findings (2) Hypertension: Code(s): I10 - Essential (primary) hypertension Qualifiers: Hypertension type: essential hypertension Qualified Code(s): I10 - Essential (primary) hypertension Plan: Blood pressure elevated in office today in office. Will add on hydrochlorothiazide to his blood pressure med regime for better blood pressure control. Of note has been experiencing some pedal edema which I believe is due to the calcium channel hortencia. Will reduce his amlodipine to 2.5 mg (3) Diabetes: Code(s): E11.9 - Type 2 diabetes mellitus without complications Qualifiers: Diabetes mellitus complication status: with hyperglycemia Diabetes mellitus extermination inspector insulin use: without extermination inspector use Diabetes mellitus type: type 2 Qualified Code(s): E11.65 - Type 2 diabetes mellitus with hyperglycemia Plan: Patient's type 2 diabetes suboptimally controlled with A1c at 7.7 which is much improved from 9.2. Will increase his Ozempic to 1 mg weekly. He will continue working on dietary lifestyle modifications. Goal A1c is to be below 7.0 (4) High cholesterol: Code(s): E78.00 - Pure hypercholesterolemia, unspecified Plan: Most recent lipid panel showing excellent control of his total cholesterol and LDL.. Continue on atorvastatin 20 mg daily. Goal LDL to remain below 100 Avoid fried foods, chicken skin, eggs, butter,margarine, pastries and? red meat. Fasting lipid panel ordered (5) Obese: Code(s): E66.9 - Obesity, unspecified Qualifiers: Body mass index: BMI 50.0-59.9 Obesity classification: adult class 3 (BMI >= 40) Obesity type: due to excess calories Serious obesity comorbidity presence: with serious comorbidity Qualified Code(s): E66.01 - Morbid (severe) obesity due to excess calories; Z68.43 - Body mass index [BMI] 50.0-59.9, adult Plan: Diet and excercise to reduce BMI. (6) ZHAO (obstructive sleep apnea): Code(s): G47.33 - Obstructive sleep apnea (adult) (pediatric) Plan: Patient has high risk for obstructive sleep apnea. Does report some daytime somnolence and significant other reports last snoring during the night. He also has difficult to control blood pressure which may be due to uncontrolled/on diagnosed obstructive sleep apnea.. Will send for home sleep study Plan Follow up in 3 months. Orders: Orders RT home sleep study 12/27/23 G47.33 - Obstructive sleep apnea (adult) (pediatric) AMB Hemoglobin A1c 12/27/23 E11.65 - Type 2 diabetes mellitus with hyperglycemia Medications: New amlodipine 2.5 mg PO DAILY 90 tabs 3RF 90 days I10 - Essential (primary) hypertension hydrochlorothiazide 12.5 mg PO DAILY 90 tabs 1RF 90 days I10 - Essential (primary) hypertension semaglutide (Ozempic) 1 mg (0.75 mL) subcut QWEEK 3 mL 3RF 4 weeks E11.65 - Type 2 diabetes mellitus with hyperglycemia Refilled blood pressure kit-extra large As directed 1 ea 0RF I10 - Essential (primary) hypertension Discontinued semaglutide (Ozempic) Discontinued Reason: Doctor's Order 0.5 mg (0.736 mL) subcut QWEEK 4 weeks 3 mL 3RF E11.65 - Type 2 diabetes mellitus with hyperglycemia amlodipine Discontinued Reason: Doctor's Order 10 mg PO DAILY 90 days 90 tabs 1RF I10 - Essential (primary) hypertension Patient Instructions: Goal: A1c to be below 7.0, LDL to remain below 100 Barriers: Adherence to physical activity and healthy eating habits Coding Level of Care Code Est Pt Prev Care 18-39y(24130) Diagnoses Annual physical exam Z00.00 Essential hypertension I10 Hypertension type: essential hypertension Type 2 diabetes mellitus with hyperglycemia, without long-term current use of insulin E11.65 Diabetes mellitus complication status: with hyperglycemia Diabetes mellitus extermination inspector insulin use: without penitentiary use Diabetes mellitus type: type 2 High cholesterol E78.00 Class 3 severe obesity due to excess calories with serious comorbidity and body mass index (BMI) of 50.0 to 59.9 in adult E66.01; Z68.43 Body mass index: BMI 50.0-59.9 Obesity classification: adult class 3 (BMI >= 40) Obesity type: due to excess calories Serious obesity comorbidity presence: with serious comorbidity ZHAO (obstructive sleep apnea) G47.33
[2023-12-27 09:09] VITALS: BP 162/108; PULSE 90; O2SAT 96; BMI 50.0
== END 2023-12-27 09:51 | disposition home or self-care (01) ==
PROVIDERS: PCP Physician Assistant; Visit Provider Physician Assistant
DX: E11.65 Type 2 diabetes mellitus with hyperglycemia (principal)
CPT/HCPCS: 83036; 99395

== ENCOUNTER → 2024-02-03 09:58 | Outpatient (REF) | payer OTHER, SELFPAY | LOC: HO.SL 09:58 | PROVIDERS: PCP Physician Assistant; Visit Provider Physician Assistant | DX: G47.33 Obstructive sleep apnea (adult) (pediatric) (principal) | CPT/HCPCS: 95806 ==

== ENCOUNTER → 2024-02-03 10:22 | Outpatient (BNV) | payer OTHER, SELFPAY | PROVIDERS: PCP Physician Assistant; Visit Provider Internal Medicine | DX: R06.83 Snoring (principal); G47.10 Hypersomnia, unspecified | CPT/HCPCS: 95806 ==

== ENCOUNTER 2024-05-10 09:49 | Outpatient (AMB) | payer OTHER, SELFPAY ==
[2024-05-10 09:58] VITALS: BP 140/92; PULSE 87; O2SAT 96; BMI 49.2
--- NOTE | 2024-05-10 09:58 | A.OFFVIS_ITS ---
Vital Signs 05/10/24 09:58 Height 5 ft 11 in Weight 352 lb 11.834 oz BMI 49.2 BP 140/92 H Blood Pressure Location Lt brachial Position Sitting Pulse 87 Pulse Source Pulse Oximeter Pulse Oximetry (%) 96 Oxygen Delivery Method Room Air Intake Visit Reasons: Nocturnal Hypoxemia Intake Note: pt is here as a new patient for nocturnal hypoxemia, hx of gasping for air, heavy snoring. Fuel Cell Systems Engineer Required: No Allergies shellfish derived Allergy (Verified 05/10/24 15:58) Hives, itching Medication List - Last Reconciled 05/10/24 by Verna Luevano MD albuterol sulfate 90 mcg/actuation 1 inh inhalation QID PRN amlodipine 2.5 mg PO DAILY 90 days atorvastatin 20 mg PO DAILY 30 days blood pressure kit-extra large As directed dulaglutide (Trulicity) 1.5 mg (0.5 mL) subcut QWEEK 30 days flash glucose scanning reader (FreeStyle Dora 2 [place]) As directed flash glucose sensor (FreeStyle Dora 2 Sensor kit) As directed every 2 weeks hydrochlorothiazide 12.5 mg PO DAILY 90 days lisinopril 30 mg PO DAILY metformin 1,000 mg PO BID 30 days pen needle, diabetic (BD Ultra-Fine Jennifer Pen Needle) As directed semaglutide (Ozempic) 1 mg (0.75 mL) subcut QWEEK 4 weeks Do you need a note to return to daycare/school/sports/work: No HPI HPI Nocturnal Hypoxemia: Details: This 38 years old gentleman is being seen for the 1st time. Referred by his primary care physician because of nocturnal hypoxemia. He is a case of morbid obesity with his BMI running around 49-54 long-time. He has history of excessive snoring at night as confirmed by his . According to his he has frequent bouts of gasping and waking up at night. He tosses and turns around. The symptoms are worse when he falls asleep on his back. During the daytime remains tired and overly sleepy. He had a home-based sleep study on 02/03/24 Surprisingly it showed moderate degree snoring, and total sleep time AHI only 3.9, supine position AHI 5.8. Main abnormality was that he had nocturnal hypoxemia with O2 sat below 88% for 22 minutes. He denies the history of any chronic obstructive pulmonary disease, Has only occasional wheeze and uses albuterol once in a while. He has had no respiratory infection or pneumonia. But has frequent bouts of cough, due to nonspecific reason. Because of his disturbed sleep at night he remains tired during the daytime. He tends to fall asleep if he is sitting and resting at any point. Especially in the afternoons when he is sitting after lunch he tends to fall asleep. He remains morbidly obese and has not been able to lose much weight. He does have comorbidities including hypertension, diabetes mellitus, hyperlipidemia. [facility] Medical History (Updated 05/10/24 @ 16:17 by Verna Luevano MD) Morbid obesity Ventral hernia (02/18/23) History of snoring High cholesterol Hypertension Diabetes Surgical History History of tonsillectomy H/O eye surgery Family History Mother No problems noted. Father High blood pressure Social History Household Members: Significant Other and Children Housing: House Are you a primary career representative to a significant other at home: Yes (daughter) Do you presently have visiting nurse or other home services: No Alcohol intake: current Alcohol intake frequency: holidays/special occasions only Patient Tobacco Use Status: Never used Tobacco e-Cigarette/Vaping Use: Never Used service: No Current occupational status: employed Current occupation: [employer] - Cognitive needs: No Hearing needs: No Vision needs: No Review of Systems Const All systems reviewed & are unremarkable except as noted in HPI and below ENT Reports no additional complaints Card Denies chest pain, Denies syncope and Denies leg edema Resp Reports as per HPI GI Reports no additional complaints Reports no additional complaints Musc Reports no additional complaints Skin/Breast Reports system reviewed and no additional complaints, except as documented Neuro Reports no additional complaints and Denies syncope Psych Reports no additional complaints Endo Reports no additional complaints Jaret/Lymph Reports no additional complaints Aller/Immun Reports no additional complaints Physical Exam Vital Signs: Last Vital Signs Pulse 87 05/10/24 09:58 BP 140/92 H 05/10/24 09:58 Pulse Ox 96 05/10/24 09:58 Oxygen Delivery Method Room Air 05/10/24 09:58 BMI result Body Mass Index 49.2 He is grossly obese with a round face Const General: healthy appearing (Except for being grossly overweight), comfortable, no acute distress, alert and awake Orientation/consciousness: patient oriented x3 HEENT Head: Yes normal to inspection General nose exam: No nasal polyps present and No nasal discharge present Face and sinus: Yes sinuses nontender Mouth: oropharynx normal (Narrow and crowded, Mallampati class 4) Throat: Yes posterior oropharynx normal Eyes General: appearance normal, both eyes and all related structures Neck Neck: Yes normal visual inspection, Yes no lymphadenopathy, Yes trachea midline, Yes no JVD and Yes other (Neck size 20 in) Thyroid: Thyroid normal Chest Chest palpation & inspection: normal inspection of the chest, normal palpation of entire chest wall and no tenderness Resp Other: Percussion note not perceptible because of very thick chest wall. Breath sounds are slightly diminished over the basilar. Areas No wheezes or rhonchi are heard Cardio Palpation: PMI not normal (Not palpable) Rate: regular rate Rhythm: regular rhythm Heart sounds: no gallops and no murmurs Peripheral pulses: Peripheral pulses 2+ throughout GI Palpation (GI): Soft to palpation, Tenderness to palpation present (GI), No hepatosplenomegaly present, Palpable mass present and Other GI palpation findings present (Abdomen is grossly obese and protuberant) Auscultation: normal bowel sounds Back/Spine/Pelvis Thoracic/Lumbar Spine: thoracic and lumbar spine normal to inspection and thoraco-lumbar ROM limited Skin General skin exam: no rashes or lesions noted Neuro General: patient oriented x3 and no focal motor deficits Cranial nerves: Yes CN's II-XII intact bilaterally Extrem General: Yes normal to inspection, Yes no clubbing, cyanosis or edema and Yes no calf tenderness Psych Speech and movement: Normal speech and movement present Results Reviewed Results Reviewed: The results of home-based sleep study on 02/02, as described above. He has only minimal degree of obstructive apneas with supine AHI 5.8 and total sleep time AHI 3.9. Of concern is the presence of nocturnal hypoxemia, with O2 sat below 88% for 22 minute. He does not have history of any chronic pulmonary disease, so the hypoxemia seems to be related to obesity related hypoventilation. Assessment & Plan Assessment & Plan (1) ZHAO (obstructive sleep apnea): Comment: This patient has typical physical features suggestive of sleep apnea. His symptoms are also typical of sleep apnea. Home-based sleep study shows only borderline sleep apnea. However after history and examination I have a high suspicion of sleep apnea in his case. The nocturnal hypoxemia which has been recorded is most likely related to his obstructive sleep apnea. Code(s): G47.33 - Obstructive sleep apnea (adult) (pediatric) Category: Medical Plan: I DISCUSSED WITH THE PATIENT AND HIS AND THEIR CONCERN IS THAT HE DOES HAVE SLEEP APNEA. SO I ADVISE THAT HE SHOULD HAVE A POLYSOMNOGRAM STUDY IN THE SLEEP LAB, UNDER CLOSE OBSERVATION. (2) Nocturnal hypoxemia: Comment: THE ONLY REASON FOR HIS NOCTURNAL HYPOXEMIA SEEMS TO BE MORBID OBESITY AND SLEEP APNEA. Code(s): G47.34 - Idiopathic sleep related nonobstructive alveolar hypoventilation Category: Medical Plan: HE WOULD NEED TO HAVE A POLYSOMNOGRAM STUDY UNDER CLOSE OBSERVATION IN THE SLEEP LAB . ALSO I WOULD ORDER PULMONARY FUNCTION TEST TO CHECK FOR ANY RESTRICTIVE OR OBSTRUCTIVE AIRWAY DISORDER. (3) Morbid obesity: Comment: PATIENT HAS MORBID OBESITY CURRENT BMI 49.2. HE HAS NOT BEEN ABLE TO LOSE MUCH WEIGHT. Code(s): E66.01 - Morbid (severe) obesity due to excess calories Category: Medical Plan: ONCE THE POLYSOMNOGRAM STUDY IS DONE AND IF HE HAS SLEEP APNEA HE WOULD NEED ACTIVE TREATMENT WITH CPAP. THEN I WOULD SUGGEST THAT HE SHOULD BE IN A WEIGHT REDUCTION PROGRAM Orders: Orders RT PSG in-lab sleep study Today E66.01 - Morbid (severe) obesity due to excess calories, G47.33 - Obstructive sleep apnea (adult) (pediatric), G47.34 - Idiopathic sleep related nonobstructive alveolar hypoventilation PFT pulmonary function test Today E66.01 - Morbid (severe) obesity due to excess calories, G47.33 - Obstructive sleep apnea (adult) (pediatric), G47.34 - Idiopathic sleep related nonobstructive alveolar hypoventilation Coding Level of Care Code New Pt Level 4 (33357) Diagnoses ZHAO (obstructive sleep apnea) G47.33 Nocturnal hypoxemia G47.34 Morbid obesity E66.01
== END 2024-05-10 10:42 | disposition home or self-care (01) ==
LOC: HO.HPS 09:50
PROVIDERS: PCP Physician Assistant; Visit Provider Internal Medicine
DX: G47.33 Obstructive sleep apnea (adult) (pediatric) (principal); G47.34 Idiopathic sleep related nonobstructive alveolar hypoventilation; E66.01 Morbid (severe) obesity due to excess calories; Z68.42 Body mass index [BMI] 45.0-49.9, adult
CPT/HCPCS: 99214

== ENCOUNTER → 2024-05-10 09:49 | Outpatient (BNVA) | payer OTHER, SELFPAY | PROVIDERS: PCP Physician Assistant; Visit Provider Internal Medicine | DX: G47.33 Obstructive sleep apnea (adult) (pediatric) (principal); G47.34 Idiopathic sleep related nonobstructive alveolar hypoventilation; E66.01 Morbid (severe) obesity due to excess calories; Z68.42 Body mass index [BMI] 45.0-49.9, adult | CPT/HCPCS: 99212 ==

== ENCOUNTER 2024-06-21 09:49 | Outpatient (REF) | payer OTHER, SELFPAY ==
--- NOTE | 2024-06-21 09:53 | PFT_ITS ---
Indication: Hypoxia Spirometry [FEV1 to FVC 78%; FEV1 3.4 L; FVC 4.34 L. No significant response to bronchodilators noted. Maximum voluntary ventilation 78% predicted] Lung Volumes [Total lung capacity 79% predicted; expiratory reserve volume 26% predicted] Diffusion Capacity [DLCO 120% predicted] Comparisons [none] Interpretation [Now obstructive ventilatory defect identified. No significant response to bronchodilators noted. Mild decrease in the maximum voluntary ventilation secondary to likely deconditioning. The patient does have a restrictive ventilatory defect consistent with very mild restrictive lung disease. The patient does have a decrease in the expiratory reserve volume suggesting that it is likely secondary to an elevated BMI. Diffusing capacity is within normal limits.] MTDD
[2024-06-21 10:54] VITALS: PULSE 95; O2SAT 97
== END 2024-06-21 09:50 | disposition home or self-care (01) ==
LOC: HO.RESP 09:49
PROVIDERS: PCP Physician Assistant; Visit Provider Internal Medicine
DX: E66.01 Morbid (severe) obesity due to excess calories (principal); G47.34 Idiopathic sleep related nonobstructive alveolar hypoventilation; G47.33 Obstructive sleep apnea (adult) (pediatric)
CPT/HCPCS: 94010; 94640; 94727; 94729

== ENCOUNTER → 2024-06-21 09:53 | Outpatient (BNV) | payer OTHER, SELFPAY | PROVIDERS: PCP Physician Assistant; Visit Provider Hospitalist | DX: R09.02 Hypoxemia (principal) | CPT/HCPCS: 94060; 94727; 94729 ==

== ENCOUNTER → 2024-06-27 20:18 | Outpatient (BNV) | payer OTHER, SELFPAY | PROVIDERS: PCP Physician Assistant; Visit Provider Internal Medicine | DX: G47.33 Obstructive sleep apnea (adult) (pediatric) (principal) | CPT/HCPCS: 95810 ==

== ENCOUNTER → 2024-06-27 20:30 | Outpatient (REF) | payer OTHER, SELFPAY | LOC: HO.SL 20:30 | PROVIDERS: PCP Physician Assistant; Visit Provider Internal Medicine | DX: E66.01 Morbid (severe) obesity due to excess calories (principal); G47.34 Idiopathic sleep related nonobstructive alveolar hypoventilation; G47.33 Obstructive sleep apnea (adult) (pediatric) | CPT/HCPCS: 95810 ==

== ENCOUNTER 2024-07-19 15:08 | Outpatient (AMB) | payer OTHER, SELFPAY ==
[2024-07-19 15:12] VITALS: BP 150/92; PULSE 91; O2SAT 96; BMI 48.0
--- NOTE | 2024-07-19 15:12 | MHC.OFFVIS ---
Vital Signs 07/19/24 15:12 Height 5 ft 11 in Weight 343 lb 14.738 oz BMI 48.0 BP 150/92 H Blood Pressure Location Lt brachial Position Sitting Pulse 91 Pulse Source Pulse Oximeter Pulse Oximetry (%) 96 Oxygen Delivery Method Room Air Intake Visit Reasons: f/u sleep stuy Intake Note: pt is here for follow up and states he is feeling good. Deputy [employer] Services Required: No Allergies shellfish derived Allergy (Verified 07/19/24 15:33) Hives, itching Medication List - Last Reconciled 07/19/24 by Verna Luevano MD albuterol sulfate 90 mcg/actuation 1 inh inhalation QID PRN amlodipine 2.5 mg PO DAILY 90 days atorvastatin 20 mg PO DAILY 30 days blood pressure kit-extra large As directed dulaglutide (Trulicity) 1.5 mg (0.5 mL) subcut QWEEK 30 days flash glucose scanning reader (FreeStyle Dora 2 Martin) As directed flash glucose sensor (FreeStyle Dora 2 Sensor kit) As directed every 2 weeks hydrochlorothiazide 12.5 mg PO DAILY 90 days lisinopril 30 mg PO DAILY metformin 1,000 mg PO BID 30 days pen needle, diabetic (BD Ultra-Fine Jennifer Pen Needle) As directed semaglutide (Ozempic) 1 mg (0.75 mL) subcut QWEEK 4 weeks Do you need a note to return to daycare/school/sports/work: No HPI HPI f/u sleep stuy: Details: 38 YEARS OLD GENTLEMAN WITH MORBID OBESITY, AND SYMPTOMS OF OBSTRUCTIVE SLEEP APNEA. HAD HOME-BASED SLEEP STUDY WHICH DID NOT SHOW OBSTRUCTIVE SLEEP APNEA. HOWEVER HE HAD TYPICAL SYMPTOMS AND THUS WE HAD ORDERED POLYSOMNOGRAM STUDY IN THE SLEEP LAB WHICH WAS PERFORMED ON 06/27/2024. HE IS HERE FOR FOLLOW-UP AND TO GO OVER THE FINDINGS OF THE SLEEP STUDY. IN THE MEANTIME HE HAS BECOME QUITE CONCERNED AND SERIOUS ABOUT WEIGHT REDUCTION. AND HAS LOST ABOUT 8 LB. HE CLAIMS THAT HE IS NOW SLEEPING BETTER. ACCORDING TO HIS , HIS SNORING IS LESS THAN BEFORE. [facility] Medical History Morbid obesity Ventral hernia (02/18/23) History of snoring High cholesterol Hypertension Diabetes Surgical History History of tonsillectomy H/O eye surgery Family History Mother No problems noted. Father High blood pressure Social History Household Members: Significant Other and Children Housing: House Are you a primary skin care instructor to a significant other at home: Yes (daughter) Do you presently have visiting nurse or other home services: No Alcohol intake: current Alcohol intake frequency: holidays/special occasions only Patient Tobacco Use Status: Never used Tobacco e-Cigarette/Vaping Use: Never Used service: No Current occupational status: employed Current occupation: [employer] - Cognitive needs: No Hearing needs: No Vision needs: No Review of Systems Const All systems reviewed & are unremarkable except as noted in HPI and below ENT Reports no additional complaints Card Denies chest pain, Denies syncope and Denies leg edema Resp Reports as per HPI GI Reports no additional complaints Reports no additional complaints Musc Reports no additional complaints Skin/Breast Reports system reviewed and no additional complaints, except as documented Neuro Reports no additional complaints and Denies syncope Psych Reports no additional complaints Endo Reports no additional complaints Jaret/Lymph Reports no additional complaints Aller/Immun Reports no additional complaints Physical Exam Vital Signs: Last Vital Signs Pulse 91 07/19/24 15:12 BP 150/92 H 07/19/24 15:12 Pulse Ox 96 07/19/24 15:12 Oxygen Delivery Method Room Air 07/19/24 15:12 BMI result Body Mass Index 48.0 He is grossly obese with a round face Const General: healthy appearing (Except for being grossly overweight), comfortable, no acute distress, alert and awake Orientation/consciousness: patient oriented x3 HEENT Head: Yes normal to inspection General nose exam: No nasal polyps present and No nasal discharge present Face and sinus: Yes sinuses nontender Mouth: oropharynx normal (Narrow and crowded, Mallampati class 4) Throat: Yes posterior oropharynx normal Eyes General: appearance normal, both eyes and all related structures Neck Neck: Yes normal visual inspection, Yes no lymphadenopathy, Yes trachea midline, Yes no JVD and Yes other (Neck size 20 in) Thyroid: Thyroid normal Chest Chest palpation & inspection: normal inspection of the chest, normal palpation of entire chest wall and no tenderness Resp Other: Percussion note not perceptible because of very thick chest wall. Breath sounds are slightly diminished over the basilar. Areas No wheezes or rhonchi are heard Cardio Palpation: PMI not normal (Not palpable) Rate: regular rate Rhythm: regular rhythm Heart sounds: no gallops and no murmurs Peripheral pulses: Peripheral pulses 2+ throughout GI Palpation (GI): Soft to palpation, Tenderness to palpation present (GI), No hepatosplenomegaly present, Palpable mass present and Other GI palpation findings present (Abdomen is grossly obese and protuberant) Auscultation: normal bowel sounds Back/Spine/Pelvis Thoracic/Lumbar Spine: thoracic and lumbar spine normal to inspection and thoraco-lumbar ROM limited Skin General skin exam: no rashes or lesions noted Neuro General: patient oriented x3 and no focal motor deficits Cranial nerves: Yes CN's II-XII intact bilaterally Extrem General: Yes normal to inspection, Yes no clubbing, cyanosis or edema and Yes no calf tenderness Psych Speech and movement: Normal speech and movement present Results Reviewed Results Reviewed: POLYSOMNOGRAM STUDY PERFORMED IN THE SLEEP LAB SHOWS THE FOLLOWING. OBSTRUCTIVE SLEEP APNEA, MILD WITH TOTAL SLEEP TIME AHI 10.2, AND MOSTLY IN SUPINE POSITION. EXCESSIVE SNORING, FOR 45% OF THE SLEEP TIME. MILD NOCTURNAL HYPOXEMIA WITH THE O2 SAT BELOW 88% FOR 17 MINUTES. PATIENT DID NOT QUALIFY FOR SPLIT NIGHT STUDY. Assessment & Plan Assessment & Plan (1) Morbid obesity: Comment: PATIENT HAS MORBID OBESITY CURRENT BMI 48.0 HE HAS NOT BEEN ABLE TO LOSE MUCH WEIGHT. NOW SINCE HIS LAST VISIT HE IS MORE SERIOUS ABOUT HIS WEIGHT, AND HAS LOST 8 LB ALREADY. Code(s): E66.01 - Morbid (severe) obesity due to excess calories Category: Medical Plan: WE HAD EXTENSIVE CONVERSATION ABOUT HIS WEIGHT, ABOUT THE DIET, AND NEED TO DO EXERCISE. HE SEEMS TO BE WELL MOTIVATED AT THIS TIME, AND PROMISES THAT HE IS GOING TO LOSE WEIGHT. (2) ZHAO (obstructive sleep apnea): Comment: This patient has typical physical features suggestive of sleep apnea. His symptoms are also typical of sleep apnea. Home-based sleep study shows only borderline sleep apnea. However I had a high suspicion for obstructive sleep apnea. So a polysomnogram study in the sleep lab is done which shows mild obstructive sleep apnea with excessive snoring and mild nocturnal hypoxemia. Code(s): G47.33 - Obstructive sleep apnea (adult) (pediatric) Category: Medical Plan: Discussed with him in great deal. Treatment of fumes are reviewed. He wants to try aggressive conservative measures for the next few months. 1-POSITION THERAPY EXPLAINED, HE SHOULD TRY TO SLEEP IN LATERAL POSITION, MAY USE A LARGE PILLOW ARE A WEDGE, 2- WEIGHT REDUCTION, HE IS SERIOUS ABOUT GOING TO GYM AND WALKING ON A DAILY BASIS, HE IS SERIOUS ABOUT RESTRICTING CALORIES AND ESPECIALLY CARBOHYDRATES I TOLD HIM THAT HE DEFINITELY CAN TREAT HIS SLEEP APNEA WITH THE ABOVE TO MEASURES, BUT WILL BE MONITORED CLOSELY. (3) Nocturnal hypoxemia: Comment: THE ONLY REASON FOR HIS NOCTURNAL HYPOXEMIA SEEMS TO BE MORBID OBESITY ,SLEEP APNEA AND SLEEP-RELATED HYPOVENTILATION. IT IS MILD AND IS EXPECTED TO IMPROVE HE LOSES WEIGHT. PULMONARY FUNCTION TEST WAS BASICALLY NORMAL. Code(s): G47.34 - Idiopathic sleep related nonobstructive alveolar hypoventilation Category: Medical Plan: ENCOURAGED TO LOSE WEIGHT AND ALSO TRY TO DO DEEP BREATHING EXERCISES 2 OR 3 TIMES A DAY. Coding Level of Care Code Est Pt Level 3 (89189) Diagnoses Morbid obesity E66.01 ZHAO (obstructive sleep apnea) G47.33 Nocturnal hypoxemia G47.34
== END 2024-07-19 15:34 | disposition home or self-care (01) ==
PROVIDERS: PCP Physician Assistant; Visit Provider Internal Medicine
DX: E66.01 Morbid (severe) obesity due to excess calories (principal); G47.33 Obstructive sleep apnea (adult) (pediatric); G47.34 Idiopathic sleep related nonobstructive alveolar hypoventilation
CPT/HCPCS: 99213

== ENCOUNTER → 2024-07-19 15:08 | Outpatient (BNVA) | payer OTHER, SELFPAY | PROVIDERS: PCP Physician Assistant; Visit Provider Internal Medicine | DX: G47.33 Obstructive sleep apnea (adult) (pediatric) (principal); G47.34 Idiopathic sleep related nonobstructive alveolar hypoventilation; E66.01 Morbid (severe) obesity due to excess calories; Z68.42 Body mass index [BMI] 45.0-49.9, adult | CPT/HCPCS: 99212 ==

== ENCOUNTER 2024-12-27 08:17 | Outpatient (AMB) | payer OTHER, SELFPAY ==
[2024-12-27 08:24] VITALS: BP 134/78; PULSE 93; RESP 16; TEMP 36.5; O2SAT 95; BMI 44.5
--- NOTE | 2024-12-27 08:24 | MHC.PC.OV ---
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 Accompanied by: Self / Same As Patient Allergies shellfish derived Allergy (Verified 12/27/24 08:46) Hives, itching Medication List - Last Reconciled 12/27/24 by Aaron Garcia PA-C albuterol sulfate 90 mcg/actuation 1 inh inhalation QID PRN amlodipine 2.5 mg PO DAILY 90 days atorvastatin 20 mg PO DAILY 30 days blood pressure kit-extra large As directed flash glucose scanning reader (FreeStyle Dora 2 [place]) As directed flash glucose sensor (FreeStyle Dora 2 Sensor kit) As directed every 2 weeks hydrochlorothiazide 12.5 mg PO DAILY 90 days lisinopril 30 mg PO DAILY metformin 1,000 mg PO BID 30 days pen needle, diabetic (BD Ultra-Fine Jennifer Pen Needle) As directed semaglutide (Ozempic) 1 mg (0.75 mL) subcut QWEEK 4 weeks Tobacco use date assessed: 12/27/24 Dental Screening Dental Screen Date: 12/27/24 Did you have a dental visit in the last 12 months?: Yes Did you have a dental problem in the last 6 months where you did not have access to dental care?: No Was dental information given to patient?: Patient has dentist HPI Annual Exam HPI Details Patient is a 39-year-old male here today for a routine annual physical.? ? Patient has a past medical history significant for type 2 diabetes, hypertension, obesity. .. Hypertension:? Blood pressure acceptable today in office. He has been making significant lifestyle modifications and has lost a significant amount of weight. Denies any shortness of breath, headaches or chest pain. PLAN: Will hold his hydrochlorothiazide and continue with both his amlodipine and lisinopril. DMII: Patient's type 2 diabetes well controlled Today's A1c at 6.7 Now on Ozempic 1 mg weekly and metformin 1000 b.i.d.. Has been consistent with a gym routine several days a week. Has less than significant amount of weight since last office visit .. ZHAO: Followed by [facility] here in [place], he is not on CPAP therapy and was told he likely can control his obstructive sleep apnea with weight reduction. Vaccines: Up-to-date with tetanus vaccine, UTD with COVID ,pneumonia vaccine Laboratory Tests 09/02/23 12/27/23 12/27/24 11:11 09:10 08:30 Hgb A1c (Clinic) 9.2 H 7.7 H 6.7 H Laboratory Tests 12/22/22 09/02/23 12/01/23 07:55 11:11 09:02 RBC Hgb Hgb A1c (Clinic) 7.4 H 9.2 H Urine Microalbumin 22.0 12/14/23 12/27/23 10:17 09:10 RBC 4.48 L Hgb 13.5 L Hgb A1c (Clinic) 7.7 H Urine Microalbumin [facility] Medical History Morbid obesity Ventral hernia (02/18/23) History of snoring High cholesterol Hypertension Diabetes Surgical History History of tonsillectomy H/O eye surgery Family History Mother No problems noted. Father High blood pressure Social History (Updated 12/27/24 @ 08:50 by Aaron Garcia PA-C) Household Members: Significant Other and Children Housing: House Are you a primary caretaker grounds to a significant other at home: Yes (daughter) Do you presently have visiting nurse or other home services: No Alcohol intake: current Alcohol intake frequency: holidays/special occasions only Patient Tobacco Use Status: Never used Tobacco e-Cigarette/Vaping Use: Never Used service: No Current occupational status: employed Current occupation: [employer] Cognitive needs: No Hearing needs: No Vision needs: No Questionnaire PHQ-9 Over the last 2 weeks, how often have you been bothered by any of the following problems? 1. Little interest or pleasure in doing things: not at all 2. Feeling down, depressed, or hopeless: not at all 3. Trouble falling or staying asleep, or sleeping too much: not at all 4. Feeling tired or having little energy: not at all 5. Poor appetite or overeating: not at all 6. Feeling bad about yourself - or that you are a failure or have let yourself or your family down: not at all 7. Trouble concentrating on things, such as reading the newspaper or watching television: not at all 8. Moving or speaking so slowly that other people could have noticed. Or the opposite - being so fidgety or restless that you have been moving around a lot more than usual: not at all 9. Thoughts that you would be better off or of hurting yourself in some way: not at all Total score: 0 Depression Screening Interpretation: Negative Depression Screening Done: Yes 61695 - PHQ-9 Billing: Yes Source: Developed by Drs. Rik Cowart, Steph Loo, Randall Oropeza and colleagues, with an educational dajuan from [employer]. Thrive Questionnaire Date Thrive assessed: 12/27/24 I am a: Patient What is your living situation today?: I have a steady place to live Within the past 12 months, did the food you bought not last and you didn't have the money to get more?: Never true Within the past 12 months, did you worry whether your food would run out before you got money to buy more?: Never true Do you have trouble paying for medicines?: No Do you have trouble getting transportation to medical appointments?: No Do you have trouble paying your heating and electricity bill?: No Do you have trouble taking care of your child, family member or friend?: No Do you have trouble with day-to-day activities such as bathing, preparing meals, shopping, managing finances, etc.?: No Are you currently unemployed and looking for a job?: No Are you interested in more education?: No Please select the resources that you would like help with: None Currently or been in a relationship where the following occur: No concerns reported THRIVE Score: 0 AUDIT C Alcohol Use Questionnaire (AUDIT-C) 1. How often do you have a drink containing alcohol?: Never Total Score: 0 Score Reviewed/Action Taken: No GINNY-7 AMB Questionnaire GINNY-7 Date GINNY - 7 assessed: 12/27/24 Feeling nervous, anxious, or on edge: 0 = Not at all Not being able to stop or control worryin = Not at all Worrying too much about different things: 0 = Not at all Trouble relaxin = Not at all Being so restless that it is hard to sit still: 0 = Not at all Becoming easily annoyed or irritable: 0 = Not at all Feeling afraid as if something awful might happen: 0 = Not at all Total GINNY-7 score (0-4 normal; 5-9 mild; 10-14 moderate; 15-21 severe): 0 Source: Developed by Drs. Rik Cowart, Steph Loo, Randall Oropeza and colleagues, with an educational dajuan from [employer]. GINNY-7 Assessment Billing GINNY-7 Assessment Tool: GINNY-7 Assessment 42471 Physical exam (Primary Care) Vital Signs: Last Vital Signs Temp 97.7 F 12/27/24 08:24 Pulse 93 12/27/24 08:24 Resp 16 12/27/24 08:24 BP 134/78 12/27/24 08:24 Pulse Ox 95 12/27/24 08:24 Oxygen Delivery Method Room Air 12/27/24 08:24 BMI result Body Mass Index 44.5 BMI Assessment/Plan discussion: High BMI High, discussed plan: lifestyle, weight reduction, dietary and physical activity Tobacco/Smoking Status: Tobacco use Status Tobacco use date assessed 12/27/24 12/27/24 08:26 Patient Tobacco Use Status Never used Tobacco 12/27/24 08:26 e-Cigarette/Vaping Use Never Used 12/27/24 08:26 PHQ-9: PHQ-9 Score PHQ-9: Total score 0 12/27/24 08:38 Depression Screening Interpretation: Negative Thrive Assessment: Date of Thrive Assessment Date Thrive assessed 12/27/24 12/27/24 08:26 Currently or been in a relationship where the following occur: No concerns reported Results AMB Hemoglobin A1c AMB Hemoglobin A1c 6.7 % Last Edit by Violet Obrien CMA on 12/27/24 08:39 Results Reviewed Results Reviewed: Laboratory Last Values Hgb A1c (Clinic) 6.7 % (4.0-6.0) H 12/27/24 08:30 Coding Level of Care Code Est Pt Prev Care 18-39y(54165) Diagnoses Annual physical exam Z00.00 Type 2 diabetes mellitus with hyperglycemia, without long-term current use of insulin E11.65 Diabetes mellitus type: type 2 Diabetes mellitus termite treater helper insulin use: without termite treater helper use Diabetes mellitus complication status: with hyperglycemia High cholesterol E78.00 Essential hypertension I10 Hypertension type: essential hypertension Class 3 obesity E66.813 Additional Codes GINNY-7 Assessment Billing - GINNY-7 Assessment Tool: GINNY-7 Assessment [id number] ([id number]) PHQ-9 - 69475 - PHQ-9 Billing: Yes ([id number]) Assessment & Plan Assessment & Plan (1) Annual physical exam: Code(s): Z00.00 - Encounter for general adult medical examination without abnormal findings Category: Medical Plan: As per HPI (2) Diabetes: Code(s): E11.9 - Type 2 diabetes mellitus without complications Category: Medical Qualifiers: Diabetes mellitus type: type 2 Diabetes mellitus termite treater helper insulin use: without mcfp use Diabetes mellitus complication status: with hyperglycemia Qualified Code(s): E11.65 - Type 2 diabetes mellitus with hyperglycemia Plan: Patient's type 2 diabetes now well controlled with A1c is 6.7. Continues on Ozempic and metformin daily. Will consider reducing his metformin doses at next office visit. A1c is to remain below 7.0 (3) High cholesterol: Code(s): E78.00 - Pure hypercholesterolemia, unspecified Category: Medical Plan: Patient continues on statin therapy without side effect. He will check his fasting lipid panel soon to evaluate his LDL. Goal LDL is to be below 100 (4) Hypertension: Code(s): I10 - Essential (primary) hypertension Category: Medical Qualifiers: Hypertension type: essential hypertension Qualified Code(s): I10 - Essential (primary) hypertension Plan: Patient's blood pressure acceptable today in office. He has made significant changes in his lifestyle and physical activity.. Will hold off on his hydrochlorothiazide and continue both his amlodipine and lisinopril. Goal blood pressure to remain below 140/90 (5) Class 3 obesity: Code(s): E66.813 - Obesity, class 3 Category: Medical Plan: Patient has made significant lifestyle modifications. Continues on Ozempic 1 mg weekly. Has lost a significant amount of weight and reports he feels much better. He will continue lifestyle and dietary modifications to lose more weight. Orders: Orders Microalbumin, Random (w Creat) Today I10 - Essential (primary) hypertension Complete Blood Count no Diff Today I10 - Essential (primary) hypertension Comprehensive [place]. Panel Fast Today I10 - Essential (primary) hypertension Lipid Panel Today E78.00 - Pure hypercholesterolemia, unspecified AMB Hemoglobin A1c Today E11.65 - Type 2 diabetes mellitus with hyperglycemia Patient Instructions: Goal: A1c to remain below 7.0, LDL to be below 100, blood pressure to remain below 140/90 Barriers: Adherence to physical activity and healthy eating habits
== END 2024-12-27 09:08 | disposition home or self-care (01) ==
LOC: HO.HMCH 08:18
PROVIDERS: PCP Physician Assistant; Visit Provider Physician Assistant
DX: Z00.00 Encounter for general adult medical examination without abnormal findings (principal); E11.65 Type 2 diabetes mellitus with hyperglycemia; E66.813 Obesity, class 3; Z68.41 Body mass index [BMI] 40.0-44.9, adult; E78.00 Pure hypercholesterolemia, unspecified; I10 Essential (primary) hypertension

== ENCOUNTER → 2024-12-27 08:17 | Outpatient (BNVA) | payer OTHER, SELFPAY | PROVIDERS: PCP Physician Assistant; Visit Provider Physician Assistant | DX: Z00.00 Encounter for general adult medical examination without abnormal findings (principal); E11.65 Type 2 diabetes mellitus with hyperglycemia; I10 Essential (primary) hypertension; E66.813 Obesity, class 3; G47.33 Obstructive sleep apnea (adult) (pediatric); E78.00 Pure hypercholesterolemia, unspecified; Z99.89 Dependence on other enabling machines and devices; Z68.41 Body mass index [BMI] 40.0-44.9, adult; Z79.899 Other long term (current) drug therapy | CPT/HCPCS: 83036; 96127; 99395 ==

== ENCOUNTER 2024-12-27 09:19 | Outpatient (REF) | payer OTHER, SELFPAY ==
[2024-12-27 10:01] LABS: Hematocrit 41.4 % (42.0-52.0); Hemoglobin 14.4 g/dl (14.0-18.0); Mean Corpuscular HGB Conc 34.8 g/dl (31.0-36.0); Mean Corpuscular Hemoglobin 30.4 pg (27.0-33.0); Mean Corpuscular Volume 87.3 fL (80.0-98.0); Mean Platelet Volume 10.2 fL (9.4-12.4); Platelet Count 319 X10*3/uL (160-400); Red Blood Count 4.74 X10*6/uL (4.60-5.80); Red Cell Distribution Width 12.9 % (11.0-16.0); White Blood Count 5.5 X10*3/uL (4.8-10.8)
[2024-12-27 10:30] LABS: Creatinine Urine 243.06 mg/dL; Microalbum/Creatinine Ratio Ur 4.5 ug/mg cr (<30)
[2024-12-27 10:31] LABS: Alanine Aminotransferase 20 U/L (0-40); Albumin Level 4.6 g/dL (3.5-5.0); Alkaline Phosphatase 51 U/L (39-117); Anion Gap 12 (12-20); Aspartate Amino Transferase 19 U/L (5-37); Bilirubin Total 1.5 mg/dL (0.0-1.0); Blood Urea Nitrogen 13 mg/dL (9-16); Calcium 10.2 mg/dL (8.4-10.2); Carbon Dioxide 28 mmol/L (22-29); Chloride 105 mmol/L (96-108); Cholesterol 143 mg/dL (<200); Estimated Glomerular Filt Rate > 60; Glucose Fasting 131 mg/dL (60-99); HDL Cholesterol 43 mg/dL (>40); LDL Cholesterol Calculated 87 mg/dL (<100); Sodium 141 mmol/L (135-145); Total Protein 7.6 g/dL (6.5-8.0); Triglycerides 69 mg/dL (<150)
== END 2024-12-27 09:20 | disposition home or self-care (01) ==
LOC: HO.10HDL 09:19
PROVIDERS: Visit Provider Physician Assistant
DX: I10 Essential (primary) hypertension (principal); E78.00 Pure hypercholesterolemia, unspecified
CPT/HCPCS: 36415; 80053; 80061; 82043; 82570; 85027

== ENCOUNTER 2025-07-04 07:57 | Outpatient (AMB) | payer OTHER, SELFPAY ==
--- OUTSIDE RECORDS SUMMARY | 2025-07-04 08:03 | XMS_ITS | Clinical Summary ---
Author Organization [facility] Address [address] [place] [id number] Phone Care Team Providers Care Prosthetic Dentist Name Role Phone Michael Neville MD Primary Care Provider Allergies Active Allergy Reactions Criticality Noted Date Comments Shrimp 12/01/2020 Active Problems No known active problems Social History Tobacco Use Types Packs/Day Years Used Date Smoking Tobacco: Never Alcohol Use Standard Drinks/Week Comments Yes 0 (1 standard drink = 0.6 oz pur e alcohol) socially Education Answer Date Recorded Are you interested in more education? Not on hakan e 11/07/2022 Are you concerned about learning? Not on file 11/07/2022 No 11/07/2022 No 11/07/2022 Digital Access Answer Date Recorded No 12/05/2022 No 12/05/2022 No 12/05/2022 Reliable internet access at home? Not on file 12/05/2022 Device with a working camera? Not on file Sex and Gender Information Value Date Recorded Sex Assigned at Male 12/01/2020 1:43 AM EDT Legal Sex Male 1:06 AM EDT Gender Identity Male 12/01/2020 1:43 AM EDT Sexual Orientation Straight 12/01/2020 1: 43 AM EDT Last Filed Vital Signs Vital Sign Reading Time Taken Comments Blood Pressure 145/90 12/01/2020 2:00 AM EDT Pulse 117 12/01/2020 1:35 AM EDT Temperature 36.8 C (98.2 F) 12/01/2020 2:00 AM EDT Respiratory Rate 16 12/01/2020 2:00 AM EDT Oxygen Saturation 95% 12/01/2020 2:00 AM EDT Inhaled Oxygen Concentration - - Weight 158.8 kg (350 lb) 12/01/2020 1:35 AM EDT Height 180.3 cm (5' 11 ) 12/01/2020 1:35 AM EDT Body Mass Index 48.82 12/01/2020 1:35 AM EDT Plan of Treatment Health Maintenance Due Date Last Done Comments LIPID PANEL 1987 DEPRESSION SCREENING 1999 HEPATITIS C SCREENING 12/22/2005 HIV ONE-TIME SCREENING (18-6 5 YEARS) 12/22/2005 SMOKING STATUS SCREENING (On ce After 26 Yrs) 12/22/2013 INFLUENZA VACCINE (#1) 2025 8, 05/25/2016, 09/10/2015 COVID-19 VACCINE (3 - 2024-2 6 season) 2025 04/12/2021, 03/22/2021 Adult Td,Tdap Booster 10/23/2025 10/24/2015 PNEUMOCOCCAL VACCINES (0-49 years) Aged Out 09/10/2015 No longer eligible b ased on patient's age to complete this topic HEPATITIS A VACCINES Aged Out No long er eligible based on patient's age to complete this topic HIB VACCINES Aged Out No longer eligi ble based on patient's age to complete this topic MENINGOCOCCAL VACCINES (ACWY) Aged Out No longer eligible based on patient's age to complete this topic MENINGOCOCCAL VACCINES (B) Aged Out N o longer eligible based on patient's age to complete this topic Medical Devices Not on file Insurance [facility] [place] [address] [place] [address] [place] [address] [place] [address] [place] [address] [place] [address] [employer] [facility] [place] [address] [place] [address] ACO [facility] Care Teams Prosthetic Dentist Relationship Specialty Start Date End Date Michael Neville MD PCP - General 12/01/20 Additional Source Comments The information contained in this document represents components of the legal health record. It is not the complete legal health record.[facility]
--- NOTE | 2025-07-04 08:08 | MHC.PC.OV ---
Vital Signs 07/04/25 08:10 Height 5 ft 11 in Weight 313 lb BMI 43.6 BP 154/90 H Blood Pressure Location Lt brachial Position Sitting Respiration 14 Pulse 85 Pulse Source Pulse Oximeter Temp 98.0 F Temp Source Tympanic Pulse Oximetry (%) 96 Oxygen Delivery Method Room Air Intake Visit Reasons: f/u DMII/ HTN- repeat A1C Intake Note: Patient states has been itchy in the lower extremities x 2 months Allergies shellfish derived Allergy (Verified 07/04/25 08:38) Hives, itching dulaglutide (From Trulicity) Adverse Reaction (Intermediate, Verified 07/04/25 08:38) Rash Medication List - Last Reconciled 07/04/25 by Aaron Garcia PA-C albuterol sulfate 90 mcg/actuation 1 inh inhalation QID PRN amlodipine 2.5 mg PO DAILY 90 days atorvastatin 20 mg PO DAILY 30 days blood pressure kit-extra large As directed flash glucose scanning reader (FreeStyle Dora 2 [place]) As directed flash glucose sensor (FreeStyle Dora 2 Sensor kit) As directed every 2 weeks hydrochlorothiazide 12.5 mg PO DAILY 90 days lisinopril 30 mg PO DAILY metformin 1,000 mg PO BID 30 days pen needle, diabetic (BD Ultra-Fine Jennifer Pen Needle) As directed tirzepatide (Mounjaro) 2.5 mg (0.5 mL) subcut QWEEK 4 weeks Tobacco use date assessed: 12/27/24 Dental Screening Dental Screen Date: 12/27/24 HPI f/u DMII/ HTN- repeat A1C HPI Details Patient is a 39-year-old male here today for a follow-up visit ? Patient has a past medical history significant for type 2 diabetes, hypertension, obesity. .. Hypertension:? Blood pressure elevated today in office. He has been making significant lifestyle modifications and has lost a significant amount of weight. Denies any shortness of breath, headaches or chest pain. PLAN: Will increase his amlodipine to 5 mg DMII: Patient's type 2 diabetes well controlled , today's A1c much improved at 5.6 The patient has reported pruritus on his thighs and legs for the past two months. He notes the itching is not associated with any bumps or rash and is worse when he goes to bed. The symptom began while he was on Trulicity and has persisted since switching to Mounjaro. Has been consistent with a gym routine several days a week. PLAN: Will discontinue Mounjaro for now continue in his current dose of metformin. Continue lifestyle and dietary modifications .. ZHAO: Followed by franco here in [place], he is not on CPAP therapy and was told he likely can control his obstructive sleep apnea with weight reduction. [facility], LAT[facility] Medical History Morbid obesity Ventral hernia (02/18/23) History of snoring High cholesterol Hypertension Diabetes Surgical History History of tonsillectomy H/O eye surgery Family History Mother No problems noted. Father High blood pressure Social History Household Members: Significant Other and Children Housing: House Are you a primary child care to a significant other at home: Yes (daughter) Do you presently have visiting nurse or other home services: No Alcohol intake: current Alcohol intake frequency: holidays/special occasions only Patient Tobacco Use Status: Never used Tobacco e-Cigarette/Vaping Use: Never Used service: No Current occupational status: employed Current occupation: [employer] Cognitive needs: No Hearing needs: No Vision needs: No Questionnaire Thrive Questionnaire Date Thrive assessed: 12/27/24 I am a: Patient What is your living situation today?: I have a steady place to live Within the past 12 months, did the food you bought not last and you didn't have the money to get more?: Never true Within the past 12 months, did you worry whether your food would run out before you got money to buy more?: Never true Do you have trouble paying for medicines?: No Do you have trouble getting transportation to medical appointments?: No Do you have trouble paying your heating and electricity bill?: No Do you have trouble taking care of your child, family member or friend?: No Do you have trouble with day-to-day activities such as bathing, preparing meals, shopping, managing finances, etc.?: No Are you currently unemployed and looking for a job?: No Are you interested in more education?: No Currently or been in a relationship where the following occur: No concerns reported THRIVE Score: 0 GINNY-7 AMB Questionnaire GINNY-7 Date GINNY - 7 assessed: 12/27/24 Source: Developed by Drs. Rik Cowart, Steph Loo, Randall Oropeza and colleagues, with an educational dajuan from [employer]. Review of Systems Const Denies headache(s) Eyes Denies loss of vision ENT Denies vertigo, Denies dizziness, Denies headache(s) and Denies sore throat Card Denies chest pain, Denies leg edema and Denies lightheadedness Resp Denies cough, Denies hemoptysis and Denies wheezing GI Denies abdominal pain, Denies melena, Denies constipation, Denies diarrhea and Denies vomiting Denies dysuria, Denies urinary frequency and Denies urinary urgency Musc Denies arthralgias, Denies joint swelling, Denies numbness and Denies tingling Neuro Denies Abnormal speech present, Denies behavioral changes, Denies vertigo, Denies dizziness, Denies headache(s), Denies loss of vision, Denies memory loss, Denies numbness and Denies tingling Psych Denies anxiety, Denies behavioral changes, Denies depression, Denies memory loss and Denies panic attacks Jaret/Lymph Denies easy bleeding and Denies easy bruising Aller/Immun Denies wheezing Physical exam (Primary Care) Vital Signs: Last Vital Signs Temp 98.0 F 07/04/25 08:10 Pulse 85 07/04/25 08:10 Resp 14 07/04/25 08:10 BP 154/90 H 07/04/25 08:10 Pulse Ox 96 07/04/25 08:10 Oxygen Delivery Method Room Air 07/04/25 08:10 BMI result Body Mass Index 43.6 BMI Assessment/Plan discussion: High BMI High, discussed plan: lifestyle, weight reduction, dietary and physical activity Tobacco/Smoking Status: Tobacco use Status Tobacco use date assessed 12/27/24 07/04/25 08:12 Patient Tobacco Use Status Never used Tobacco 07/04/25 08:12 e-Cigarette/Vaping Use Never Used 07/04/25 08:12 Thrive Assessment: Date of Thrive Assessment Date Thrive assessed 12/27/24 07/04/25 08:12 Currently or been in a relationship where the following occur: No concerns reported Const General: healthy appearing, no acute distress, alert and awake Nutritional Appearance: well nourished Orientation/consciousness: oriented to person, oriented to place and oriented to time HENMT Ears: TM's normal bilaterally General nose exam: Normal nasal mucous membranes and turbinates present Eyes Conjunctivae: conjunctivae normal Sclerae: sclerae normal Pupils: Equal, round and reactive pupils present Neck Neck: Yes no lymphadenopathy and Yes no JVD Thyroid: Thyroid normal Carotids: no bruits Resp Effort & Inspection: normal respiratory effort and not tachypneic Auscultation: no crackles, no rales, no rhonchi and no wheezes Cardio Rate: regular rate Rhythm: regular rhythm Heart sounds: no murmurs and normal S1 and S2 GI Palpation (GI): Soft to palpation, nontender, no hepatomegaly and no splenomegaly Auscultation: normal bowel sounds Skin General skin exam: no rashes or lesions noted and dry skin Neuro General: oriented to person, oriented to place and oriented to time Cranial nerves: Yes Equal, round and reactive pupils present Speech: No Abnormal speech present Gait exam (Neuro): Normal gait present Motor exam (neuro): no tremor noted Extrem Right upper extremity: full ROM Left upper extremity: full ROM Right lower extremity: full ROM; no edema Left lower extremity: full ROM; no edema Psych Mental Status: mental status grossly normal Speech and movement: Normal speech and movement present Affect: normal affect Attitude: cooperative Thought process: Normal thought process present Results AMB Hemoglobin A1c AMB Hemoglobin A1c 5.6 % Last Edit by REDD Olivas on 07/04/25 08:42 Coding Level of Care Code Est Pt Level 4 (00784) Diagnoses Type 2 diabetes mellitus with hyperglycemia, without long-term current use of insulin E11.65 Diabetes mellitus complication status: with hyperglycemia Diabetes mellitus grants director insulin use: without correction use Diabetes mellitus type: type 2 High cholesterol E78.00 Essential hypertension I10 Hypertension type: essential hypertension Class 3 obesity E66.813 Assessment & Plan Assessment & Plan (1) Diabetes: Code(s): E11.9 - Type 2 diabetes mellitus without complications Category: Medical Qualifiers: Diabetes mellitus complication status: with hyperglycemia Diabetes mellitus grants director insulin use: without correction use Diabetes mellitus type: type 2 Qualified Code(s): E11.65 - Type 2 diabetes mellitus with hyperglycemia Plan: Patient's type 2 diabetes now well controlled with A1c is 5.6 will continue his current dose of metformin, will discontinue Mounjaro due to reports of itchiness- likely a side effect/allergy to GLP -1? . A1c is to remain below 7.0 (2) High cholesterol: Code(s): E78.00 - Pure hypercholesterolemia, unspecified Category: Medical Plan: Patient continues on statin therapy without side effect. He will check his fasting lipid panel soon to evaluate his LDL. Goal LDL is to be below 100 (3) Hypertension: Code(s): I10 - Essential (primary) hypertension Category: Medical Qualifiers: Hypertension type: essential hypertension Qualified Code(s): I10 - Essential (primary) hypertension Plan: Patient's blood pressure elevated today in office. Has been able to lose weight secondary to lifestyle and activity changes. Will increase his amlodipine to 5 mg for better blood pressure control. Goal blood pressure to remain below 140/90 (4) Class 3 obesity: Code(s): E66.813 - Obesity, class 3 Category: Medical Plan: Patient has made significant lifestyle modifications. Continues on Ozempic 1 mg weekly. Has lost a significant amount of weight and reports he feels much better. He will continue lifestyle and dietary modifications to lose more weight. Orders: Orders Microalbumin, Random (w Creat) Today I10 - Essential (primary) hypertension AMB Hemoglobin A1c Today E11.65 - Type 2 diabetes mellitus with hyperglycemia Complete Blood Count no Diff Today E11.65 - Type 2 diabetes mellitus with hyperglycemia Comprehensive [place]. Panel Fast Today E11.65 - Type 2 diabetes mellitus with hyperglycemia Lipid Panel Today E78.00 - Pure hypercholesterolemia, unspecified Hemoglobin A1c Today E11.65 - Type 2 diabetes mellitus with hyperglycemia Medications: New amlodipine 5 mg PO DAILY 90 tabs 1RF 90 days I10 - Essential (primary) hypertension On Hold amlodipine Hold Comment: Doctor's Order 2.5 mg PO DAILY 90 tabs 3RF 90 days I10 - Essential (primary) hypertension tirzepatide (Mounjaro) Hold Comment: Doctor's Order 2.5 mg (0.5 mL) subcut QWEEK 2 mL 0RF 4 weeks E11.65 - Type 2 diabetes mellitus with hyperglycemia, E66.813 - Obesity, class 3, G47.33 - Obstructive sleep apnea (adult) (pediatric)
[2025-07-04 08:10] VITALS: BP 154/90; PULSE 85; RESP 14; TEMP 36.7; O2SAT 96; BMI 43.6
== END 2025-07-04 08:51 | disposition home or self-care (01) ==
LOC: HO.HMCH 07:58
PROVIDERS: PCP Physician Assistant; Visit Provider Physician Assistant
DX: E11.65 Type 2 diabetes mellitus with hyperglycemia (principal); E78.00 Pure hypercholesterolemia, unspecified; I10 Essential (primary) hypertension; E66.813 Obesity, class 3

== ENCOUNTER → 2025-07-04 07:57 | Outpatient (BNVA) | payer OTHER, SELFPAY | PROVIDERS: PCP Physician Assistant; Visit Provider Physician Assistant | DX: E11.65 Type 2 diabetes mellitus with hyperglycemia (principal); E78.00 Pure hypercholesterolemia, unspecified; I10 Essential (primary) hypertension; E66.813 Obesity, class 3; Z68.41 Body mass index [BMI] 40.0-44.9, adult | CPT/HCPCS: 83036; 99212 ==